=== PATIENT | female | born 1950 | race Caucasian/White ===

== ENCOUNTER 2017-07-25 11:41 | Inpatient (IN) | payer MEDICARE ==
[~2017-07-25] VITALS: Ht 152.4 cm; Wt 44.0 kg
[2017-07-25] VITALS (15 sets, daily range): BP systolic 127–179; BP diastolic 69–88; PULSE 76–121; RESP 18–22; TEMP 97.7–98.2; O2SAT 92–97
[2017-07-25] MEDS: RESP: ALBUTEROL 2.5 MG/IPRATROPIUM 0.5 MG NEB (SCH) INH (12:14)
[2017-07-25] MEDS ORDERED: SODIUM CHLORIDE 0.9% FLUSH 10 ML FLUSH IVF PRN (12:15)
[2017-07-25] MEDS ORDERED: methylPREDNISolone SOD SUCC 125 MG/2 ML VIAL IV PUSH ONE (12:15)
--- NOTE | 2017-07-25 12:15 | PD ---
HPI Chief Complaint: Respiratory Symptoms Time Seen by Provider: 12:01 Travel History International Travel<30 days: No Contact w/Intl Traveler<30days: No Traveled to known affect area: No History of Present Illness HPI This patient complains of shortness of breath. Duration 3 days. Severity is moderate to severe. She arrives hypoxic on room air. Saturation 89%. She denies lung disease but has smoked for 50+ years. She has a dry hacking cough for 3 days. Some congestion and runny nose. She has some central chest pressure. No pleuritic pain. No leg swelling. No alleviating factors. Symptoms likely exacerbated by her smoking. PFSH Past Medical History Medical History: Denies Significant Hx Influenza Vaccination: No ?: Not Past Surgical History Cholecystectomy: Yes Hysterectomy: Yes Social History Alcohol Use: Yes (OCCAS) Tobacco Use: Yes (1/2 PPD) Substance Use: No Allergies-Medications (Allergen,Severity, Reaction): Coded Allergies: No Known Allergies (Verified Allergy, Unknown, 07/25/17) Reported Meds & Prescriptions Reported Meds & Active Scripts Active No Active Prescriptions or Reported Medications Review of Systems General / Constitutional: No: Fever Eyes: No: Visual changes HENT: Positive: Rhinorrhea, Congestion, No: Headaches Cardiovascular: Positive: Chest Pain or Discomfort Respiratory: Positive: Cough, Shortness of Breath Gastrointestinal: No: Abdominal Pain Genitourinary: No: Dysuria Musculoskeletal: No: Pain Skin: No Rash Neurologic: No: Weakness Psychiatric: No: Depression Endocrine: No: Polydipsia Hematologic/Lymphatic: No: Easy Bruising Physical Exam Narrative GENERAL: Well-nourished, well-developed patient with shortness of breath . SKIN: Focused skin assessment reveals no rash and nodules. Skin is Warm and dry. HEAD: Atraumatic. Normocephalic. EYES: Pupils equal and round. No scleral icterus. No injection or drainage. ENT: No nasal bleeding or discharge. Mucous membranes pink and moist. NECK: Trachea midline. No JVD. CARDIOVASCULAR: Regular rate and rhythm. No murmur appreciated. RESPIRATORY: Some accessory muscle use. Very diminished breath sounds throughout. Seems to be little air movement. Breath sounds equal bilaterally. GASTROINTESTINAL: Abdomen soft, non-tender, nondistended. Hepatic and splenic margins not palpable. MUSCULOSKELETAL: No obvious deformities. No clubbing. No cyanosis. No edema. NEUROLOGICAL: Awake and alert. No obvious cranial nerve deficits. Motor grossly within normal limits. Normal speech. PSYCHIATRIC: Appropriate mood and affect; insight and judgment normal. Data Data Last Documented VS Vital Signs Date Time Temp Pulse Resp B/P (MAP) Pulse Ox O2 Delivery O2 Flow Rate FiO2 07/25/17 15:05 99 18 129/69 (89) 95 Nasal Cannula 2.00 07/25/17 11:59 97.7 Orders Orders Complete Blood Count With Diff (07/25/17 12:09) Basic Metabolic Panel (Bmp) (07/25/17 12:09) Influenzae A/B Antigen (07/25/17 12:09) Iv Access Insert/Monitor (07/25/17 12:09) Electrocardiogram (07/25/17 12:09) Ecg Monitoring (07/25/17 12:09) Oximetry (07/25/17 12:09) Oxygen Administration (07/25/17 12:09) Chest, Single Ap (07/25/17 12:09) Sodium Chloride 0.9% Flush (Ns Flush) (07/25/17 12:15) Methylprednisolone So Succ Inj (Solumedr (07/25/17 12:15) Albuterol-Ipratropium Neb (Duoneb Neb) (07/25/17 12:15) Ckmb (Isoenzyme) Profile (07/25/17 12:40) Troponin I (07/25/17 12:40) CKMB (07/25/17 12:40) CKMB% (07/25/17 12:40) Admit Order (Ed Use Only) (07/25/17 15:32) Labs Laboratory Tests Test 07/25/17 12:40 White Blood Count 9.2 TH/MM3 Red Blood Count 5.30 MIL/MM3 Hemoglobin 16.2 GM/DL Hematocrit 48.3 % Mean Corpuscular Volume 91.0 FL Mean Corpuscular Hemoglobin 30.6 PG Mean Corpuscular Hemoglobin Concent 33.6 % Red Cell Distribution Width 13.6 % Platelet Count 251 TH/MM3 Mean Platelet Volume 8.7 FL Neutrophils (%) (Auto) 74.3 % Lymphocytes (%) (Auto) 16.2 % Monocytes (%) (Auto) 5.6 % Eosinophils (%) (Auto) 3.0 % Basophils (%) (Auto) 0.9 % Neutrophils # (Auto) 6.8 TH/MM3 Lymphocytes # (Auto) 1.5 TH/MM3 Monocytes # (Auto) 0.5 TH/MM3 Eosinophils # (Auto) 0.3 TH/MM3 Basophils # (Auto) 0.1 TH/MM3 CBC Comment DIFF FINAL Differential Comment Blood Urea Nitrogen 8 MG/DL Creatinine 0.53 MG/DL Random Glucose 116 MG/DL Calcium Level 9.7 MG/DL Sodium Level 139 MEQ/L Potassium Level 3.9 MEQ/L Chloride Level 105 MEQ/L Carbon Dioxide Level 25.6 MEQ/L Anion Gap 8 MEQ/L Estimat Glomerular Filtration Rate 114 ML/MIN Total Creatine Kinase 130 U/L Creatine Kinase MB 6.5 NG/ML Troponin I 0.74 NG/ML [facility] Medical Decision Making Medical Screen Exam Complete: Yes Emergency Medical Condition: Yes Medical Record Reviewed: Yes Differential Diagnosis Hypoxic respiratory failure, COPD, pneumonia, ACS Narrative Course I have reviewed the patient's electronic medical record. This patient arrives short of breath and hypoxic. She is also having chest discomfort. I placed her on oxygen Extended cardiac monitoring reveals sinus tachycardia without ectopy. There is no ST elevation. There is inverted T waves in lateral leads I reviewed her EKG which shows sinus tachycardia without ST elevation Labs sent I gave her series of 3 nebulizer treatments and IV Solu-Medrol I find it likely she has some degree of COPD despite having no diagnosis General labs are normal. CK is normal. Troponin is 0.74 Patient is asymptomatic base at this point no longer critically ill. She is not having acute chest pain Hospitalist team is here now. They have recommended admission to the main hospital to [facility], essentially non-STEMI situation Critical Care Narrative Aggregate critical care time was 34 minutes. Time to perform other separately billable procedures was not included in the critical care time. My time did not include minutes spent treating any other patients simultaneously or on activities that did not directly contribute to the patient's treatment. The services I provided to this patient were to treat and/or prevent clinically significant deterioration that could result in: Respiratory collapse, cardiopulmonary arrest, cardiac arrhythmia I provided critical care services requiring my management, as noted below: Chart data review, documentation time, medication orders and management, vital sign assessments/reviewing monitor data, ordering and reviewing lab tests, ordering and interpreting/reviewing x-rays and diagnostic studies, care of the patient and discussion of the patient with the admitting physicians. Diagnosis Primary Impression: Acute respiratory failure with hypoxia Additional Impression: Non-STEMI (non-ST elevated myocardial infarction) Admitting Information Admitting Physician Requests: Admit Scripts No Active Prescriptions or Reported Meds Jamir Boyer MD Jul 25, 2017 12:15
--- NOTE | 2017-07-25 12:38 | RADRPT ---
EXAM DATE/TIME: 07/25/2017 12:13 [place] COMPARISON: No previous studies available for comparison. INDICATIONS : Short of breath. MEDICAL HISTORY : None. SURGICAL HISTORY : Cholecystectomy. Hysterectomy. ENCOUNTER: Initial ACUITY: 3 days PAIN SCORE: 0/10 LOCATION: Bilateral chest FINDINGS: A single view of the chest demonstrates the lungs to be symmetrically aerated without evidence of mas s, infiltrate or effusion. The cardiomediastinal contours are unremarkable. Atherosclerotic calcific ations are present in the aorta. There are electrocard exam leads and oxygen tubing. Osseous structur es are intact. CONCLUSION: No acute disease. Cornell Moreland MD on July 25, 2017 at 12:35 Board Certified Radiologist. This report was verified electronically.
[2017-07-25 12:57] LABS: AUTOMATED NEUTROPHIL # 6.8 TH/MM3 (1.8-7.7); BASOPHIL # 0.1 TH/MM3 (0-0.2); BASOPHIL % 0.9 % (0.0-2.0); EOSINOPHIL # 0.3 TH/MM3 (0-0.4); HEMATOCRIT 48.3 % (35.0-46.0); HEMOGLOBIN 16.2 GM/DL (11.6-15.3); LYMPH % 16.2 % (9.0-44.0); LYMPHOCYTE # 1.5 TH/MM3 (1.0-4.8); MEAN CORPUSCULAR HEMOGLOBIN 30.6 PG (27.0-34.0); MEAN CORPUSCULAR HGB CONC 33.6 % (32.0-36.0); MEAN PLATELET VOLUME 8.7 FL (7.0-11.0); MONO % 5.6 % (0.0-8.0); MONOCYTE # 0.5 TH/MM3 (0-0.9); NEUT % 74.3 % (16.0-70.0); PLATELET COUNT 251 TH/MM3 (150-450); RED CELL DISTRIBUTION WIDTH 13.6 % (11.6-17.2); WHITE BLOOD COUNT 9.2 TH/MM3 (4.0-11.0)
[2017-07-25 13:09] LABS: CHLORIDE 105 MEQ/L (98-107); SODIUM (NA) 139 MEQ/L (136-145)
[2017-07-25 13:11] LABS: CALCIUM 9.7 MG/DL (8.5-10.1)
[2017-07-25 13:12] LABS: BICARBONATE 25.6 MEQ/L (21.0-32.0); BLOOD UREA NITROGEN 8 MG/DL (7-18); GLUCOSE,RANDOM 116 MG/DL (74-106)
[2017-07-25 13:15] LABS: CREATININE 0.53 MG/DL (0.50-1.00); GLOMERULAR FILTRATION RATE 114 ML/MIN (>89)
[2017-07-25 14:41] LABS: TROPONIN I 0.74 NG/ML (0.02-0.05)
[2017-07-25] MEDS ORDERED: HEPARIN SODIUM - IV 10,000 UNITS/10 ML VIAL IV PUSH ONE (15:45)
[2017-07-25] MEDS ORDERED: ASPIRIN 325 MG TAB PO SCH (15:45)
[2017-07-25] MEDS ORDERED: SODIUM CHLORIDE 0.9% FLUSH 10 ML FLUSH IV FLUSH PRN (15:45)
[2017-07-25] MEDS ORDERED: RESP: ALBUTEROL 2.5 MG/IPRATROPIUM 0.5 MG NEB (PRN) NEB (15:45)
[2017-07-25] MEDS ORDERED: DOCUSATE SODIUM 100 MG CAP PO PRN (15:45)
[2017-07-25] MEDS ORDERED: ACETAMINOPHEN 325 MG TAB PO PRN (15:45)
[2017-07-25] MEDS ORDERED: HEPARIN-D5W 25,000 U/250 ML 250 ML IV PRN (15:45)
--- NOTE | 2017-07-25 16:15 | HHI.HP ---
[facility] Criss Og MD Admission Diagnosis acute hypoxic resp failure due to COPD,chest pain with trop I eleva Diagnoses: (1) Acute coronary syndrome Diagnosis: Principal (2) Non-STEMI (non-ST elevated myocardial infarction) Diagnosis: Principal (3) Hypoxia Diagnosis: Principal Chief Complaint: Chest pain, shortness of breath Travel History International Travel<30 Days: No Contact w/Intl Traveler <30 Da: No Traveled to Known Affected Are: No History of Present Illness 67-year-old female with known history of hypertension, chronic tobacco use who presented to the hospital because of a 3-4 day history of shortness of breath, dry cough, dyspnea on exertion, orthopnea. Patient was in her normal state of health until 4 days ago when she started developing upper respiratory symptoms with cough and shortness of breath. It progressively got worse until 2 days ago when she started developing orthopnea, dyspnea on exertion. Patient states that she could not lay flat. She had to use 2 pillows in order to sit herself up in order for her to breathe. Then yesterday morning she started developing chest discomfort in which she describes it as someone was sitting on her chest, states that the discomfort radiated up to into the left side of her neck and into her left trapezius where she felt as if she had a muscle cramp there all day. She has some nausea and vomited after she had significant coughing. She had worsening dyspnea on exertion, shortness of breath. She denied any lightheadedness or dizziness. She went to her primary medical doctor's office today for evaluation and they sent her directly to the emergency department. In the emergency department the patient presented and was found to have O2 saturation of 89% on presentation. Patient was initially started on oxygen with improvement of her O2 saturations. Patient does smoke at least a half pack of cigarettes a day since she was 10 years old. Patient has significant risk factors for underlying cardiac disease. 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 She does not indicate that she is ever had any stress test in the past. Patient had a workup done with her clinical presentation with the persistent chest tightness, dyspnea on exertion, orthopnea, EKG findings of anterior lateral T-wave abnormalities possible ischemia. Elevated troponin. Patient with acute coronary syndrome and non-ST elevated myocardial infarction. [facility] was contacted who recommended transfer to the main hospital, started on heparin. Patient was started on cardiac protection with aspirin, beta-vee, statin, Nitropaste. Review of Systems Respiratory: COMPLAINS OF: Cough, Shortness of breath Cardiovascular: COMPLAINS OF: Chest pain, Dyspnea on Exertion, Orthopnea Gastrointestinal: COMPLAINS OF: Nausea, Vomiting Except as stated in HPI: all other systems reviewed are Neg Past Family Social History Past Medical History History of hypertension Chronic tobacco use Past Surgical History Cholecystectomy Hysterectomy Tonsillectomy Right leg bone graft Cardiac catheterization with ablation Reported Medications Reported Meds & Active Scripts Active No Active Prescriptions or Reported Medications Allergies: Coded Allergies: No Known Allergies (Verified Allergy, Unknown, 07/25/17) Family History Family history is reviewed and mother at age 96 from old age, she does not know her father's family history Social History Patient continues to smoke at least 10 cigarettes daily since she was 10 years old. She does drink at least 2 glasses of wine and one glass of ed daily. Denies any illicit drug Physical Exam Vital Signs Vital Signs Date Time Temp Pulse Resp B/P (MAP) Pulse Ox O2 Delivery O2 Flow Rate FiO2 07/25/17 15:05 99 18 129/69 (89) 95 Nasal Cannula 2.00 07/25/17 14:00 93 Nasal Cannula 2.00 07/25/17 14:00 111 20 141/87 (105) 93 Nasal Cannula 2.00 07/25/17 13:03 94 Nasal Cannula 2.00 07/25/17 13:03 94 Nasal Cannula 2.00 07/25/17 12:58 121 18 153/84 (107) 94 Nasal Cannula 2.00 07/25/17 12:15 95 Nasal Cannula 2.00 07/25/17 11:59 97.7 110 22 150/88 (108) 93 Nasal Cannula 2.00 07/25/17 11:50 93 Nasal Cannula 2.00 07/25/17 11:42 97.8 116 22 179/83 (115) 92 Physical Exam GENERAL: Well-developed, well-nourished, in no acute distress. alert and orientated HEENT: Head is normocephalic without any lesions or masses noted. Facial features are symmetric. Eyes: Pupils equal round reactive to light. Extraocular muscles are intact. Conjunctivae were clear. Oropharyngeal: Pharynx without any erythema edema. Tongue is midline without deviation. Buccal mucosa is moist without any masses or lesions NECK: Supple without any masses. Trachea midline no deviation. No JVD, no bruits are appreciated CARDIAC: Regular rhythm, regular rate. S1/S2 are heard. No murmurs gallops or rubs. LUNGS: Expiratory wheeze noted, no rhonchi or rales. No use of accessory muscles on inspiration or expiration. Patient does have rather forceful coughing fits ABDOMEN: Soft, nontender. Nondistended. Bowel sounds heard in all 4 quadrants. No organomegaly or masses. Negative rebound, negative guarding EXTREMITIES: No edema, pulses are equal bilaterally. No cyanosis or clubbing NEUROLOGY: Mood and affect appear appropriate. Cranial nerves II through XII grossly intact. Muscle strength 5/5 in upper and lower extremities bilaterally. Deep tendon reflexes are 2+ in upper and lower extremities bilaterally. Laboratory Laboratory Tests Test 07/25/17 12:40 White Blood Count 9.2 Red Blood Count 5.30 Hemoglobin 16.2 Hematocrit 48.3 Mean Corpuscular Volume 91.0 Mean Corpuscular Hemoglobin 30.6 Mean Corpuscular Hemoglobin Concent 33.6 Red Cell Distribution Width 13.6 Platelet Count 251 Mean Platelet Volume 8.7 Neutrophils (%) (Auto) 74.3 Lymphocytes (%) (Auto) 16.2 Monocytes (%) (Auto) 5.6 Eosinophils (%) (Auto) 3.0 Basophils (%) (Auto) 0.9 Neutrophils # (Auto) 6.8 Lymphocytes # (Auto) 1.5 Monocytes # (Auto) 0.5 Eosinophils # (Auto) 0.3 Basophils # (Auto) 0.1 CBC Comment DIFF FINAL Differential Comment Blood Urea Nitrogen 8 Creatinine 0.53 Random Glucose 116 Calcium Level 9.7 Sodium Level 139 Potassium Level 3.9 Chloride Level 105 Carbon Dioxide Level 25.6 Anion Gap 8 Estimat Glomerular Filtration Rate 114 Total Creatine Kinase 130 Creatine Kinase MB 6.5 Troponin I 0.74 Date/Time Source Procedure Growth Status 07/25/17 12:40 Nasal Washing Influenza Types A,B Antigen (PARISH) - Final NEGATIVE FOR FLU A AND B ANTIGEN.... Complete Result Diagram: 4/30/18 1240 07/25/17 1240 Imaging Last Impressions Chest X-Ray 07/25/17 1209 Signed Impressions: Service Date/Time: Tuesday, July 25, 2017 12:13 - CONCLUSION: No acute disease. MD Edgar Moncada VTE Risk Assessment Edgar VTE Risk Assessment: Mod/High Risk (score >= 2) Caprini Risk Assessment Model Point Value = 1 Point Value = 2 Point Value = 3 Point Value = 5 Age 41-60 Minor surgery BMI > 25 kg/m2 Swollen legs Varicose veins or History of unexplained or recurrent spontaneous Oral contraceptives or hormone replacement Sepsis (< 1 month) Serious lung disease, including pneumonia (< 1 month) Abnormal pulmonary function Acute myocardial infarction Congestive heart failure (< 1 month) History of inflammatory bowel disease Medical patient at bed rest Age 61-74 Arthroscopic surgery Major open surgery (> 45 min) Laparoscopic surgery (> 45 min) Malignancy Confined to bed (> 72 hours) Immobilizing plaster cast Central venous access Age >= 75 History of VTE Family history of VTE Factor V Leiden Prothrombin [id number] Lupus anticoagulant Anticardiolipin antibodies Elevated serum homocysteine Heparin-induced thrombocytopenia Other congenital or acquired thrombophilia Stroke (< 1 month) Elective arthroplasty Hip, pelvis, or leg fracture Acute spinal cord injury (< 1 month) Prophylaxis Regimen Total Risk Factor Score Risk Level Prophylaxis Regimen 0-1 Low Early ambulation 2 Moderate Order ONE of the following: *Sequential Compression Device (SCD) *Heparin 5000 units SQ BID 3-4 Higher Order ONE of the following medications: *Heparin 5000 units SQ TID *Enoxaparin/Lovenox 40 mg SQ daily (WT < 150 kg, CrCl > 30 mL/min) *Enoxaparin/Lovenox 30 mg SQ daily (WT < 150 kg, CrCl > 10-29 mL/min) *Enoxaparin/Lovenox 30 mg SQ BID (WT < 150 kg, CrCl > 30 mL/min) AND/OR *Sequential Compression Device (SCD) 5 or more Highest Order ONE of the following medications: *Heparin 5000 units SQ TID (Preferred with Epidurals) *Enoxaparin/Lovenox 40 mg SQ daily (WT < 150 kg, CrCl > 30 mL/min) *Enoxaparin/Lovenox 30 mg SQ daily (WT < 150 kg, CrCl > 10-29 mL/min) *Enoxaparin/Lovenox 30 mg SQ BID (WT < 150 kg, CrCl > 30 mL/min) AND *Sequential Compression Device (SCD) Assessment and Plan Assessment and Plan Acute coronary syndrome, non-ST elevated myocardial infarction -Patient with increased risk factors include age, history of hypertension, tobacco use -Patient with positive troponin 0.74. We will continue to trend cardiac enzymes -EKG does show sinus tachycardia with ST changes in the anterior lateral leads. We will continue to perform serial EKGs -Discussed with cardiology who indicated patient was required admission to [facility], patient should be started on heparin IV, -Patient be started on aspirin, beta-vee, statin, Nitropaste -Obtain lipid panel Hypoxia, shortness of breath, dyspnea on exertion, cough -Could be a component of acute coronary syndrome, chronic obstructive pulmonary disease, congestive heart failure -Chest x-ray did not indicate any acute abnormality -Check stat BMP -Duo nebs every 6 hours while awake and every 2 hours as needed -Influenza testing was negative, obtain sputum culture DVT prevention -Patient will be on heparin IV CODE STATUS -No intubation Physician Certification 2 Midnight Certification Type: Admission for Inpatient Services Order for Inpatient Services The services are ordered in accordance with Medicare regulations or non- Medicare payer requirements, as applicable. In the case of services not specified as inpatient-only, they are appropriately provided as inpatient services in accordance with the 2-midnight benchmark. Estimated LOS (days): 3 days is the estimated time the patient will need to remain in the hospital, assuming treatment plan goals are met and no additional complications. Post-Hospital Plan: Not yet determined Jamir Corcoran Jul 25, 2017 16:15
[2017-07-25 16:40] LABS: ALBUMIN 3.7 GM/DL (3.4-5.0)
[2017-07-25 16:42] LABS: DIRECT BILIRUBIN ADULT 0.2 MG/DL (0.0-0.2)
[2017-07-25 16:44] LABS: TOTAL BILIRUBIN ADULT 1.2 MG/DL (0.2-1.0); TOTAL PROTEIN 7.7 GM/DL (6.4-8.2)
[2017-07-25 17:09] LABS: BLOOD, URINE MOD (NEG); GLUCOSE,URINE NEG (NEG); KETONE, URINE 15 mg/dL (NEG); NITRITE,URINE NEG (NEG); PH, URINE 5.5 (5.0-8.5); URINE COLOR YELLOW (YELLW/STRAW); URINE LEUKOCYTE ESTERASE NEG (NEG)
[2017-07-25 17:12] LABS: BILIRUBIN, URINE NEG (NEG)
[2017-07-25 17:44] LABS: BACTERIA, URINE MANY /hpf; RBC, URINE 0-3 /hpf (0-3); SQUAMOUS EPITHELIAL CELL URINE > 8 /hpf (0-5)
[2017-07-25] MEDS: NITROGLYCERIN 2% OINT 1 GM PACKET TOP SCH ×2 (17:58→23:29)
[2017-07-25 18:55] LABS: TROPONIN I 0.46 NG/ML (0.02-0.05)
[2017-07-25] MEDS: MORPHINE SULFATE 4 MG/ML INJ IV PUSH PRN (19:35)
[2017-07-25] MEDS: METOPROLOL TARTRATE 25 MG TAB PO SCH (19:35)
[2017-07-25] MEDS: SODIUM CHLORIDE 0.9% FLUSH 10 ML FLUSH IV FLUSH SCH (19:36)
--- NOTE | 2017-07-25 20:17 | MB ---
cc: Clifford Irwin MD DATE: 07/25/2017 HISTORY OF PRESENT ILLNESS: Ms. Torres is a 67-year-old white female with history of hypertension and smoking. She presented with a 3-4 day history of dyspnea, dry cough and orthopnea. She also has had chest discomfort which started yesterday morning. The pain is little slower substernal, radiates to the left side of the neck. It feels like a muscle cramp. The patient was mildly hypoxemic. The patient has previous history of cardiac ablation, but has not had any history of coronary artery disease. Her troponin is elevated and is consistent with a non-ST elevation myocardial infarction. PAST MEDICAL HISTORY: Positive for hypertension. PAST SURGICAL HISTORY: History of cholecystectomy, hysterectomy, tonsillectomy, right leg bone graft, previous history of arrhythmia ablation. MEDICATIONS: The patient is not taking any medications at home. She was started on IV heparin, metoprolol, atorvastatin, nitroglycerin paste and aspirin. ALLERGIES: NONE. SOCIAL HISTORY: The patient smokes 1/2 pack a day since she was 10 years old. She drinks at 2 glasses of wine and 1 glass of ed every day. FAMILY HISTORY: Negative for heart disease. REVIEW OF SYSTEMS: Otherwise negative. PHYSICAL EXAMINATION: VITAL SIGNS: Blood pressure 157/82, pulse 92. HEENT: Negative. NECK: 2+ carotid upstrokes, no bruits. LUNGS: Clear. HEART: Regular with no murmur or gallop. ABDOMEN: Soft. No bruits. CHEST: Lower substernal chest discomfort is reproducible with chest palpation. EXTREMITIES: Without edema. 2+ distal pulses. NEUROLOGIC: Grossly nonfocal. LABORATORY DATA: EKG was reviewed and showed sinus tachycardia, nonspecific ST changes and anterior T wave inversions. Hemoglobin 16.2. Potassium 3.9, creatinine 0.5, CK 130 and 128. Troponin 0.74 and 0.46. AST and ALT normal. TSH 0.18. DIAGNOSES: 1. Non-ST elevation myocardial infarction. 2. Hypertension. 3. Smoking. ASSESSMENT AND PLAN: Ms. Torres has been ruled in for myocardial infarction by enzymes. We will continue IV heparin, beta vee, nitroglycerin, statin and aspirin. She will be scheduled for cardiac catheterization and coronary intervention if necessary tomorrow. She understands the risks and benefits, and wishes to proceed. MD SANDRA Solis , 07:52 PM , 08:16 PM [facility]
--- NOTE | 2017-07-25 20:22 | EKG ---
Date Performed: 07/25/2017 Time Performed: 12:00:37 PTAGE: 67 years EKG: SINUS TACHYCARDIA LEFT ATRIAL ENLARGEMENT ST DEVIATION AND MODERATE T-WAVE ABNORMALITY, CON PLATER HOT DIP ANTEROLATERAL ISCHEMIA ABNORMAL ECG NO PREVIOUS TRACING DOCTOR: Miguel Angel Oneil Interpretating Date/Time 07/25/2017 20:20:24
[2017-07-25 20:28] LABS: CHOLESTEROL/ HDL RATIO 2.67 RATIO; HDL CHOLESTEROL 99.4 MG/DL (40.0-60.0)
[2017-07-25] MEDS: ATORVASTATIN 10 MG TAB PO SCH (21:12)
[2017-07-25] MEDS: RESP: ALBUTEROL 2.5 MG/IPRATROPIUM 0.5 MG NEB (SCH) NEB (21:25)
[2017-07-25] MEDS ORDERED: HEPARIN SODIUM - IV 10,000 UNITS/10 ML VIAL IV PUSH PRN ×2 (21:45)
--- NOTE | 2017-07-25 21:47 | EKG ---
Date Performed: 07/25/2017 Time Performed: 18:30:16 PTAGE: 67 years EKG: SINUS TACHYCARDIA LEFT ATRIAL ENLARGEMENT Nonspecific ST and T wave abnormalities ABNORMAL ECG No significant change from prior electrocardiogram. PREVIOUS TRACING : 07/25/2017 12.00 DOCTOR: Raman Conroy Interpretating Date/Time 07/25/2017 21:45:41
[2017-07-25] MEDS: ALPRAZolam 0.25 MG TAB PO PRN (23:29)
[2017-07-26] VITALS (27 sets, daily range): BP systolic 93–144; BP diastolic 50–78; PULSE 65–103; RESP 16–20; TEMP 97.8–98.8; O2SAT 92–99
[2017-07-26 00:24] LABS: PROTHROMBIN TIME - PATIENT 10.2 SEC (9.8-11.6)
[2017-07-26] MEDS: NITROGLYCERIN 2% OINT 1 GM PACKET TOP SCH ×4 (05:22→23:42)
[2017-07-26] MEDS: RESP: ALBUTEROL 2.5 MG/IPRATROPIUM 0.5 MG NEB (SCH) NEB ×3 (07:15→20:55)
--- NOTE | 2017-07-26 07:26 | EKG ---
Date Performed: 07/26/2017 Time Performed: 06:05:16 PTAGE: 67 years EKG: Sinus rhythm . QRS changes V3/V4 may be due to LVH but cannot rule out anterior infarct LVH with secondary repolar ization abnormality Nonspecific ST and T wave abnormalities Abnormal ECG No significant change from p rior electrocardiogram. PREVIOUS TRACING : 07/25/2017 23.46 DOCTOR: Raman Conroy Interpretating Date/Time 07/26/2017 07:24:32
--- NOTE | 2017-07-26 07:27 | EKG ---
Date Performed: 07/25/2017 Time Performed: 23:46:04 PTAGE: 67 years EKG: Sinus rhythm . QRS changes V3/V4 may be due to LVH but cannot rule out anterior infarct LVH with secondary repolar ization abnormality Nonspecific ST and T wave abnormalities Abnormal ECG Compared to prior electrocar diogram, Nonspecific T wave changes are more marked PREVIOUS TRACING : 07/25/2017 18.30 DOCTOR: Raman Conroy Interpretating Date/Time 07/26/2017 07:26:47
[2017-07-26 08:08] LABS: BICARBONATE 27.4 MEQ/L (21.0-32.0); CALCIUM 9.2 MG/DL (8.5-10.1)
[2017-07-26 08:09] LABS: CREATININE 0.71 MG/DL (0.50-1.00)
[2017-07-26] MEDS: METOPROLOL TARTRATE 25 MG TAB PO SCH ×2 (08:38→20:40)
[2017-07-26] MEDS: ONDANSETRON HCL 4 MG/2 ML VIAL IV PUSH PRN (08:38)
[2017-07-26] MEDS: SODIUM CHLORIDE 0.9% FLUSH 10 ML FLUSH IV FLUSH SCH ×2 (08:38→19:38)
[2017-07-26] MEDS: ALPRAZolam 0.25 MG TAB PO PRN (08:40)
[2017-07-26] MEDS ORDERED: FLUMAZENIL 0.5 MG/5 ML VIAL IV PUSH PRN (09:00)
[2017-07-26] MEDS ORDERED: LORazepam 1 MG TAB PO PRN (09:00)
[2017-07-26] MEDS ORDERED: RESP: ALBUTEROL 2.5 MG/3 ML NEB (PRN) NEB (09:00)
[2017-07-26] MEDS ORDERED: LORazepam 2 MG/ML VIAL IV PUSH PRN ×4 (09:00)
[2017-07-26] MEDS ORDERED: BENZONATATE 100 MG CAP PO PRN (09:00)
[2017-07-26] MEDS ORDERED: LORazepam 2 MG TAB PO PRN (09:00)
--- NOTE | 2017-07-26 10:05 | HHI.PR ---
Subjective Remarks Follow up CAD, COPD. Patient reporting cough. Nursing requesting CIWA protocol. Patient denies chest pain. Objective Vitals Vital Signs Date Time Temp Pulse Resp B/P (MAP) Pulse Ox O2 Delivery O2 Flow Rate FiO2 07/26/17 09:00 92 07/26/17 08:00 101 07/26/17 07:15 99 Nasal Cannula 3.00 07/26/17 07:15 98.7 103 19 97/57 (70) 92 07/26/17 07:15 75 07/26/17 06:00 74 07/26/17 05:00 78 07/26/17 04:00 76 07/26/17 04:00 97.8 76 16 109/57 (74) 97 07/26/17 03:00 70 07/26/17 02:00 74 07/26/17 01:00 78 07/26/17 00:00 87 07/26/17 00:00 98.0 96 18 144/62 (89) 96 07/25/17 23:00 94 07/25/17 22:00 88 07/25/17 21:25 Nasal Cannula 3.00 07/25/17 21:00 76 07/25/17 20:00 88 07/25/17 19:30 98.2 88 18 152/88 (109) 97 07/25/17 19:07 07/25/17 18:09 100 18 157/82 (107) 94 Nasal Cannula 2.00 07/25/17 18:09 95 Nasal Cannula 2.00 07/25/17 17:00 108 18 127/72 (90) 95 Nasal Cannula 2.00 07/25/17 16:00 95 Nasal Cannula 2.00 07/25/17 16:00 120 20 133/74 (93) 95 Nasal Cannula 2.00 07/25/17 15:05 99 18 129/69 (89) 95 Nasal Cannula 2.00 07/25/17 14:00 93 Nasal Cannula 2.00 07/25/17 14:00 111 20 141/87 (105) 93 Nasal Cannula 2.00 07/25/17 13:03 94 Nasal Cannula 2.00 07/25/17 13:03 94 Nasal Cannula 2.00 07/25/17 12:58 121 18 153/84 (107) 94 Nasal Cannula 2.00 07/25/17 12:15 95 Nasal Cannula 2.00 07/25/17 11:59 97.7 110 22 150/88 (108) 93 Nasal Cannula 2.00 07/25/17 11:50 93 Nasal Cannula 2.00 07/25/17 11:42 97.8 116 22 179/83 (115) 92 I/O 07/25/17 07/25/17 07/25/17 07/26/17 07/26/17 07/26/17 07:00 15:00 23:00 07:00 15:00 23:00 Intake Total 300 ml Balance 300 ml Intake Oral 300 ml # Voids 1 # Bowel Movements 0 Result Diagram: 07/25/17 1240 07/26/17 0655 Imaging Last Impressions Chest X-Ray 07/25/17 1209 Signed Impressions: Service Date/Time: Tuesday, July 25, 2017 12:13 - CONCLUSION: No acute disease. Cornell Moreland MD Objective Remarks General: No acute distress. Mildly tremulous. Heart: Regular rate and rhythm. No murmur. Lungs: Mild scattered wheeze. Breathing is nonlabored. Abdomen: Soft, nontender, nondistended. Extremities: No lower extremity edema. Psych: Alert and oriented. Neuro: Normal speech. No focal deficits noted. Procedures None Urinary Catheter: No Vascular Central Line Catheter: No A/P Problem List: (1) Acute coronary syndrome ICD Code: I24.9 - Acute ischemic heart disease, unspecified (2) Non-STEMI (non-ST elevated myocardial infarction) ICD Code: I21.4 - Non-ST elevation (NSTEMI) myocardial infarction Status: Acute (3) Hypoxia ICD Code: R09.02 - Hypoxemia Assessment and Plan 1. Acute coronary syndrome, non-ST elevation WI: Appreciate cardiology recommendations. Troponin elevated. Planning for cardiac catheterization later today. Continue heparin drip. Continue aspirin, beta-vee, statin, Nitropaste. 2. Possible alcohol withdrawal: Add CIWA protocol. 3. COPD: Continue duo nebs, supplemental oxygen. Add Tessalon Perles for cough. 4. DVT prophylaxis: Heparin drip. Jamir Crespo MD July 26, 2017 10:05
[2017-07-26] MEDS ORDERED: HEPARIN-NS/PF FLUSH BAG 2,000 ML IV FLUSH ONE (16:08)
[2017-07-26] MEDS ORDERED: MIDAZOLAM HCL 5 MG/5 ML VIAL ONE (16:40)
[2017-07-26] MEDS ORDERED: HEPARIN SODIUM - IV 10,000 UNITS/10 ML VIAL ONE (16:53)
--- NOTE | 2017-07-26 17:38 | CATHPROC ---
[facility] HIS Report Study Information Study Number Admission Scheduled Start Study Start [id number] Jul 25 2017 3:34PM 07/26/2017 Jul 26 2017 4:42PM [facility] Service Cardiac Catheterization Admit Source Facility Department Other [facility] - Furnace Caretaker Physician and Clinical Staff Initial Clifford Stephenson Jewelry Enameler Sera Hernandez,RN Jewelry Enameler Best Choudhury,OLLIE Other cathlab, cathlab Recorder Rory Bolden RCIS(BS) Scrub Indu Garcia RT(R) (BS) Procedures Performed Procedure Location (Site) Vessel Name Angiogram LV LV Ventricle Coronary Angiograms LCA Left Coronary Coronary Angiograms RCA Right Coronary L Heart Cath Equipment Time Shank Rander Description Size Mfg Part Number Used/Scraped TRANSDUCER, TRBiOxyDynAVE [id number] 16:43 Capital Access Network * Used W/STOCKCOCK *[id number] 17:25 SendHub VASCADE, FR5 CLOSURE SYSTEM FR 5 Used *[id number] 17:25 SendHub VASCADE, FR5 CLOSURE SYSTEM FR 5 Used *[id number] *[id number] 16:43 boolino INDUSTRIES PACK, CCL CUSTOM * Used *[id number] 16:43 boolino PACER PEN, SKIN DUAL W/ RULER * Used *[id number] 17:00 MEDTRONIC AR MOD DXTERITY CATHETER FR 5 [id number] Used [id number] 17:00 MEDTRONIC JL 4.0 DXTERITY CATHETER FR 5 Used *[id number] PIG ANG 145 DXTERITY [id number] 17:00 MEDTRONIC FR 5 Used CATHETER *[id number] 16:43 Alekto MEDICAL WIRE, 3MMJ .035 180CM 180CM Used *[id number] PROBE COVER, STERILE [id number] 16:43 Triangulate * Used ULTRASOUND W/ GEL *[id number] 16:43 NAMIC MANIFOLD, 4 PORT * Used *[id number] 16:43 NAMIC TUBING, HIGH PRESSURE 48" 48" Used *[id number] 16:43 NYCOMED OMNIPAQUE, 350 MG, 150ML 150ML [id number] Used 17:08 NYCOMED OMNIPAQUE, 350 MG, 50ML 50ML [id number] Used [id number] 16:43 [facility] BLANKET,WARM AIR CCL * Used *[id number] 16:43 TERUMO MEDICAL SHEATH, FR5 TERUMO (10CM) FR 5 Used *[id number] Equipment Model, Serial, Lot Number and Expiration Data Description Model Number Serial Number Lot Number Expiration Date AR MOD DXTERITY CATHETER [id number] 05-09-2020 JL 4.0 DXTERITY CATHETER [id number] 12-16-2019 PIG ANG 145 DXTERITY CATHETER [id number] 04-27-2019 History: Current Medications Medication Dosage/Unit Route Frequency Last Date/Time Taken ASA Beta Juanito Statins (any) History: Allergies Allergy Reaction No Known Allergies History: Risk Factors Family History of Hypertension Dyslipidemia Previous [place] Previous Heart Failure Premature CAD Yes No No No No Prior Valve Prior PCI Prior CABG Surgery No No No Cerebrovascular Peripheral Artery Chronic Lung On Dialysis Diabetes Disease Disease Disease No No No Yes No History: Symptoms/Diagnosis Selection Items Chest pain History: Stress Tests Stress or Imaging Studies Performed No History: Other Disease Selection Items HTN History: Other Current Smoker Method Packs a Day No Cigarettes 130 Labs Hgb (g/dl) Hct (%) WBC (l/cumm) Platelets (thousands) 11.60-17.00 35.00-51.00 4.00-11.00 150.00-450.00 16.2 48.3 9.2 251 Glucose (mg/dl) BUN (mg/dl) Creatinine (mg/dl) BUN:Creatinine (1:x) 74.00-106.00 7.00-18.00 0.50-1.30 10.00-20.00 101 22 0.7 31.4 Na (meq/l) K (meq/l) 136.00-145.00 3.50-5.10 141 4 INR (PTT:PT) 0.90-1.10 1 Troponin I (ng/ml) CPK (u/l) CPK-MB (ng/ML) 0.02-0.05 26.00-308.00 0.50-3.60 0.3 135 Not Drawn Medication Medication Total Dose (Bolus/Oral) Medication Total Dosage/Unit 1% XYLOCAINE 20 mL FENTANYL 25 mcg NTG (IC) 300 mcg VERSED 2 mg Medications (Bolus/Oral) Medication Time Given Dosage/Unit Administered By Reason VERSED 07/26/2017 4:42:20 PM 1 mg Kei, Best 1 mg VERSED given in lab by Best Choudhury RN in Left Hand via Peripheral IV. Ordered by Rosalina Irwin FENTANYL 07/26/2017 4:43:00 PM 25 mcg Kei, Best 25 mcg FENTANYL given in lab by Best Choudhury RN in Left Hand via Peripheral IV. Ordered by Clifford Irwin. VERSED 07/26/2017 4:49:00 PM 1 mg Kei, Best 1 mg VERSED given in lab by Best Choudhury RN in Left Hand via Peripheral IV. Ordered by Rosalina Irwin 1% XYLOCAINE 07/26/2017 5:02:44 PM 20 mL Clifford Irwin 20 mL 1% XYLOCAINE given in lab by Clifford Irwin in Right Groin via Subcutaneous. NTG (IC) 07/26/2017 5:18:16 PM 200 mcg Indu Garcia 200 mcg NTG (IC) given in lab by Indu Garcia RT(R) (BS) via Intra-coronary. NTG (IC) 07/26/2017 5:19:39 PM 100 mcg Indu Garcia 100 mcg NTG (IC) given in lab by Indu Garcia RT(R) (BS) via Intra-coronary. Medication (Drip) Medication Time Given Dosage/Unit Concentration/Unit Diluent (ml) Solutio n IV Solutions 07/26/2017 4:42:13 PM 0 mL (IV) 500 NaCl .9 Patient arrived on IV Solutions given by cathlab, cathlab in Left Hand via Peripheral IV. Pump/Drip F low = 20 ml/hr using NaCl .9. Final Case Assessment Cardiovascular HR Rhythm NIBP Chest Pain 82 nsr 130/79 0 Edema Present Skin color Skin None Normal Warm Dry Circulatory - Right Pulses Dorsalis Pedis Femoral 2 2 Scale (0,1,2,3,4,d) Circulatory - Left Pulses Dorsalis Pedis Femoral 2 2 Scale (0,1,2,3,4,d) Neurological State Oriented to time-place- Alert Moves all extremities person Respiration - General Respiration Rate SpO2 (%) (B/min) 15 97 Final Case Assessment Cardiovascular HR Rhythm NIBP Chest Pain 79 nsr 101/60 0 Edema Present Skin color Skin None Normal Warm Dry Circulatory - Right Pulses Dorsalis Pedis Femoral 2 2 Scale (0,1,2,3,4,d) Circulatory - Left Pulses Dorsalis Pedis Femoral 2 2 Scale (0,1,2,3,4,d) Neurological State Oriented to time-place- Alert Moves all extremities person Respiration - General Respiration Rate SpO2 (%) (B/min) 15 97 Chronological Log Time Study Chronological Log 16:35:02 Patient arrived via Bed. 16:35:03 Patient Name, D.O.B, / Armband Verified By R.N. 16:35:04 Consent signed by the physician and the patient and verified by the Furnace Caretaker staff. 16:42:06 Pre-op and post- op instructions given; patient acknowledges understanding of instructions. 16:42:06 Verbal Stimulation=2 Physical Stimulation=2 Airway=2 Respiration=2 TOTAL=8. (0=absent, 1=li mited, 2=present) 16:42:07 Presedation assessment performed by Furnace Caretaker RN. 16:42:07 Immediate Presedation assesment performed by physician. 16:42:08 Patient has been NPO for More than 6Hrs. 16:42:08 Skin Breakdown-none per patient 16:42:09 Patient Warmer Placed on the Table. 16:42:09 Elijah Prominences Protected 16:42:12 A # 20 IV was noted in the Hand (left). Grade = 0 Patient arrived on IV Solutions given by jameslabcurly in Left Hand via Peripheral IV. Pump/ Drip Flow = 20 ml/hr 16:42:13 using NaCl .9. 16:42:14 History and physical on the chart or being dictated. 16:42:20 1 mg VERSED given in lab by Best Choudhury RN in Left Hand via Peripheral IV. Ordered by Clifford Rueda. 16:43:00 25 mcg FENTANYL given in lab by Best Choudhury RN in Left Hand via Peripheral IV. Ordered by Clifford Irwin. Vitals capture started with the following parameters, Patient=Adult, Interval=5 min, Initial Pr zwclde=620 mmHg, 16:45:42 Deflation Rate=5 mmHg, Cuff placed on Left Arm 16:46:18 HR=78 bpm, ZKYS=914/79 mmhg, SpO2=97.0 %, Resp=15 B/min, Pain=0, Kierra=10, Ramirez=2 16:46:25 Bilateral groins prepped with 2% chlorhexidine, and draped after a 3 minute waiting time. Assessment: Final Case, HR=82 BPM, Rhythm=nsr, FYBE=603/79 mmhg, Chest Pain=0, Edema=None, [place] r=Normal, Skin = Warm, Dry Right Pulses: Ken Ped=2, Femoral=2 16:48:07 Left Pulses: Ken Ped=2, Femoral=2 Neurological: State=Alert, Ox3, REDDY Respiration: Resp=15 B/min, SpO2=97 % 16:48:52 MD paged 16:49:00 1 mg VERSED given in lab by Best Choudhury RN in Left Hand via Peripheral IV. Ordered by Clifford Rueda. 16:51:21 HR=84 bpm, NIBP=97/57 mmhg, SpO2=94.0 %, Resp=43 B/min 16:54:06 Pressure channel 1 zeroed. 16:54:12 Reference ECG taken 16:56:14 HR=77 bpm, NIBP=90/56 mmhg, SpO2=94.0 %, Resp=16 B/min, Pain=0, Kierra=10, Ramirez=2 16:57:25 MD arrived. 16:58:37 Md called away for another pt problem. 17:01:13 HR=78 bpm, NIBP=99/53 mmhg, SpO2=98.0 %, Resp=16 B/min, Pain=0, Kierra=10, Ramirez=2 Time Out. Correct patient, correct procedure, correct physician, power injector not loaded with contrast with surgical 17:02:13 team present. Time Out Concurred by MD and individual staff in procedure. 17:02:39 Case Start 17:02:40 Verbal Stimulation=2 Physical Stimulation=2 Airway=2 Respiration=2 TOTAL=8. (0=absent, 1=li mited, 2=present) 17:02:44 20 mL 1% XYLOCAINE given in lab by Clifford Irwin in Right Groin via Subcutaneous. 17:06:05 Access site was Right Femoral Artery using ultrasound guidance. 17:06:10 A SHEATH, FR5 TERUMO (10CM) FR 5 was advanced into the Fem Art (right) using the Percutaneo us technique. 17:06:14 HR=76 bpm, UGRP=302/63 mmhg, SpO2=99.0 %, Resp=16 B/min, Pain=0, Kierra=10, Ramirez=2 A PIG ANG 145 DXTERITY CATHETER FR 5 was advanced over a wire. OMNIPAQUE, 350 MG, 150ML 150ML w as used 17:06:45 for injections. Recorded Pressure: LV, HR=74, Condition=Condition 1 17:08:08 (Left Ventricle) LV 110/11/18 17:09:50 The LV was injected at 10 cc/sec for a total of 30. OMNIPAQUE, 350 MG, 50ML 50ML used. Recorded Pressure: LV, Ao, HR=82, Condition=Condition 1 17:10:37 (Left Ventricle) LV 102/13/14, (Aorta) Ao 107/52/78 17:10:57 Catheter was removed A JL 4.0 DXTERITY CATHETER FR 5 was advanced over a wire. OMNIPAQUE, 350 MG, 150ML 150ML was us ed for 17:10:58 injections. 17:11:17 HR=77 bpm, LBSQ=524/68 mmhg, SpO2=99.0 %, Resp=16 B/min, Pain=0, Kierra=10, Ramirez=2 Recorded Pressure: Ao, HR=76, Condition=Condition 1 17:11:49 (Aorta) Ao 116/60/84 17:12:06 The LCA was injected and visualized at various angles. OMNIPAQUE, 350 MG, 150ML 150ML used . 17:14:04 Catheter was removed A AR MOD DXTERITY CATHETER FR 5 was advanced over a wire. OMNIPAQUE, 350 MG, 150ML 150ML was us ed for 17:14:05 injections. 17:15:38 The RCA was injected and visualized at various angles. OMNIPAQUE, 350 MG, 50ML 50ML used. 17:16:07 Catheter was removed 17:16:16 HR=79 bpm, DGYJ=150/68 mmhg, SpO2=99.0 %, Resp=14 B/min, Pain=0, Kierra=10, Ramirez=2 A 3DRC INFINITI CATHETER FR 5 was advanced over a wire. OMNIPAQUE, 350 MG, 150ML 150ML was used for 17:16:51 injections. 17:18:16 200 mcg NTG (IC) given in lab by Indu Garcia RT(R) (BS) via Intra-coronary. 17:18:27 The RCA was injected and visualized at various angles. OMNIPAQUE, 350 MG, 150ML 150ML used . Recorded Pressure: Ao, HR=78, Condition=Condition 1 17:18:36 (Aorta) Ao 124/63/87 17:19:39 100 mcg NTG (IC) given in lab by Indu Garcia RT(R) (BS) via Intra-coronary. 17:19:44 The RCA was injected and visualized at various angles. OMNIPAQUE, 350 MG, 150ML 150ML used . 17:20:54 Catheter was removed 17:20:56 Case End 17:21:19 HR=81 bpm, CTOG=108/60 mmhg, SpO2=98.0 %, Resp=15 B/min, Pain=0, Kierra=10, Ramirez=2 17:22:56 An injection in the Fem Art (right) was made through the SHEATH, FR5 TERUMO (10CM) FR 5. Assessment: Final Case, HR=79 BPM, Rhythm=nsr, LKJK=022/60 mmhg, Chest Pain=0, Edema=None, [place] r=Normal, Skin = Warm, Dry Right Pulses: Ken Ped=2, Femoral=2 17:23:55 Left Pulses: Ken Ped=2, Femoral=2 Neurological: State=Alert, Ox3, REDDY Respiration: Resp=15 B/min, SpO2=97 % 17:24:24 VASCADE, FR5 CLOSURE SYSTEM FR 5 placement in the Fem Art (right) 17:26:16 HR=78 bpm, UQKN=697/63 mmhg, SpO2=99.0 %, Resp=16 B/min, Pain=0, Kierra=10, Ramirez=2 17:29:37 Sterile dressing applied to site 17:29:37 No case complications noted. 17:29:38 Cine recording checked. 17:29:41 Bedside Report will be given. 17:29:42 Verbal Stimulation=2 Physical Stimulation=2 Airway=2 Respiration=2 TOTAL=8. (0=absent, 1=li mited, 2=present) 17:29:52 A Left Heart Cath was performed. 17:31:15 HR=78 bpm, PEIS=858/65 mmhg, SpO2=99.0 %, Resp=16 B/min, Pain=0, Kierra=10, Ramirez=2 17:36:17 HR=75 bpm, CNVJ=978/70 mmhg, SpO2=99.0 %, Resp=41 B/min, Pain=0, Kierra=10, Ramirez=2 17:38:16 Vitals capture stopped. 17:38:19 Patient moved to stretcher End Study - Contrast Media Used In Study Contrast Total Opened (mL) Total Used (mL) Total Wasted (mL) Omnipaque 120 120 0 End Study - Maximum Contrast Load Max Contrast Load (mL) 307.1 End Study - Radiation Exposure Fluoro Time (minutes) 1.8 End Study - Patient Disposition Complications Transferred To Interventional Outcome No Furnace Caretaker Holding No attempt made
[2017-07-26] MEDS ORDERED: SODIUM CHLOR 0.9% 1000 ML INJ 500 ML IV SCH (17:39)
[2017-07-26 18:01] LABS: CHOLESTEROL/ HDL RATIO 2.5 RATIO; HDL CHOLESTEROL 92.3 MG/DL (40.0-60.0)
[2017-07-26] MEDS: MORPHINE SULFATE 4 MG/ML INJ IV PUSH PRN ×4 (19:38→23:23)
[2017-07-26] MEDS: ATORVASTATIN 10 MG TAB PO SCH (20:39)
--- NOTE | 2017-07-26 21:58 | MR ---
cc: Clifford Irwin MD, Otakar MD DATE: 07/26/2017 INDICATION: Non-ST elevation myocardial infarction, class IV angina. PROCEDURE PERFORMED: 1. Retrograde left heart catheterization with left ventriculography and selective coronary angiography. 2. Moderate sedation. ACCESS SITE: Right femoral artery. EQUIPMENT USED: 5-Macanese pigtail. 5-Macanese JR4 and AR modified coronary artery catheters. MEDICATIONS: Versed IV, fentanyl IV CONTRAST: Omnipaque 120 mL COMPLICATIONS: None. ESTIMATED BLOOD LOSS: Less than 10 mL METHOD OF HEMOSTASIS Vascade closure. RESULTS: A. HEMODYNAMICS: Heart rate 78 beats per minute. Left ventricular end-diastolic pressure 13 mmHg. Left ventricle 120/13, aorta 110/63/87. B: LEFT VENTRICULOGRAPHY Ejection fraction 55% with small area of mid anterolateral hypokinesis. C: CORONARY ANGIOGRAPHY Left main coronary artery patent. Left anterior descending artery has 20% stenosis in the mid portion. D1 has 30% ostial stenosis. Left circumflex artery is patent. OM1 is patent. Right coronary artery is a dominant vessel with 20% stenosis in the mid portion. There is catheter-induced spasm in the proximal vessel, which completely resolved with IC nitroglycerin. DIAGNOSES: 1. Mild nonobstructive coronary artery disease. 2. Preserved left ventricular systolic function. DISPOSITION: The patient can be reassured about her cardiac status. Her cardiac catheterization reveals no evidence of significant obstructive coronary artery disease and preserved left ventricular systolic function. I recommend to continue medical management including aggressive modification of her cardiac risk factors. She was strongly encouraged to quit smoking. Clifford Irwin MD OQ/SA/ , 05:37 PM , 05:57 PM ALBERTA
[2017-07-27] VITALS (24 sets, daily range): BP systolic 109–128; BP diastolic 55–65; PULSE 55–80; RESP 18–20; TEMP 97.4–98.8; O2SAT 96–98
[2017-07-27] MEDS: MORPHINE SULFATE 4 MG/ML INJ IV PUSH PRN ×2 (00:41→02:40)
[2017-07-27] MEDS ORDERED: EPINEPHrine HCL (1:10,000) 1 MG/10 ML SYRINGE ONE (01:07)
[2017-07-27] MEDS ORDERED: ATROPINE SULFATE 1 MG/10 ML SYRINGE ONE (01:07)
[2017-07-27] MEDS ORDERED: IOHEXOL 350 MG/ML 10 ML VIAL (for RAD DIAG) IVCONTRAST ONE (01:46)
[2017-07-27] MEDS ORDERED: HEPARIN - 10,000 UNITS/ML IV ADDITIVE IV PUSH STA (02:18)
[2017-07-27] MEDS ORDERED: HEPARIN-D5W 25,000 U/250 ML 250 ML IV PRN (02:30)
[2017-07-27] MEDS ORDERED: HEPARIN SODIUM - IV 10,000 UNITS/10 ML VIAL IV PUSH ONE (02:30)
--- NOTE | 2017-07-27 02:45 | RADRPT ---
EXAM DATE/TIME: 07/27/2017 01:19 [place] COMPARISON: No previous studies available for comparison. INDICATIONS : Cold and painful right leg post cardiac cath. IV CONTRAST: 75 cc Omnipaque 350 (iohexol) IV RADIATION DOSE: 10.15 CTDIvol (mGy) MEDICAL HISTORY : Cardiovascular disease. SURGICAL HISTORY : Hysterectomy. Cholecystectomy.Cardiac cath. ENCOUNTER: Initial ACUITY: 1 day PAIN SCALE: 6/10 LOCATION: Right leg TECHNIQUE: Volumetric scanning was performed using a multi-row detector CT scanner. The data was post processed with a variety of visualization algorithms including full volume maximum intensity projection, multi -planar sliding thin slab reformation, curved planar reformation, and surface rendering techniques. Using automated exposure control and adjustment of the mA and/or kV according to patient size, radiat ion dose was kept as low as reasonably achievable to obtain optimal diagnostic quality images. DICO M format image data is available electronically for review and comparison. FINDINGS: Abdominal aorta: Mild, scattered atherosclerotic calcification. Aorta is widely patent without aneurysmal disease. Sin gle bilateral renal arteries are patent. Mesenteric vessels are patent. Pelvis: Bilateral atherosclerotic calcification in the common iliac arteries with mild luminal narrowing of t he right common iliac artery. Left iliac system is patent throughout. Right external iliac occludes a bruptly proximally with collateral reconstitution of the common femoral. Right lower extremity: Profunda and SFA are patent. Popliteal is patent down to the knee joint were then occludes abruptly. There is collateral reconstitution of all 3 trifurcation vessels which are then patent into the ankle and foot. Left lower extremity: Profunda SFA and popliteal are patent. 3 vessel runoff. Miscellaneous: Patient is status post cholecystectomy and hysterectomy. Abdominal and pelvic viscera are otherwise i ntact CONCLUSION: 1. Abrupt occlusion of the proximal right external iliac with collateral reconstitution of the right common femoral. 2. On the right, the profunda, SFA and ylbgt-zbr-ntju articular patent with abrupt occlusion of the j uxta-articular portion of the popliteal concern for an embolic event. Collateral reconstitution of th e trifurcation vessels. All 3 are patent into the ankle and foot. 3. Inflow and outflow is adequate on the left. 4. Mesenteric and renal vessels are patent. Johnathon Luis MD on July 27, 2017 at 2:35 Board Certified Radiologist. This report was verified electronically.
[2017-07-27 03:42] LABS: HEMATOCRIT 38.7 % (35.0-46.0); MEAN CELL VOLUME 92.9 FL (80.0-100.0); MEAN CORPUSCULAR HEMOGLOBIN 31.2 PG (27.0-34.0); MEAN CORPUSCULAR HGB CONC 33.6 % (32.0-36.0); MEAN PLATELET VOLUME 8.9 FL (7.0-11.0); PLATELET COUNT 213 TH/MM3 (150-450); RED BLOOD COUNT 4.17 MIL/MM3 (4.00-5.30); RED CELL DISTRIBUTION WIDTH 14.4 % (11.6-17.2)
[2017-07-27 03:45] LABS: BICARBONATE 26.5 MEQ/L (21.0-32.0); CALCIUM 8.4 MG/DL (8.5-10.1); CREATININE 0.64 MG/DL (0.50-1.00)
[2017-07-27] MEDS ORDERED: POVIDONE IODINE 5% (ANTISEPSIS KIT) 4 APPLICATIONS EACH NARE PRN ×2 (03:45→04:00)
[2017-07-27] MEDS ORDERED: CHLORHEXIDINE GLUCONATE 2 % 1 PACK (2 CLOTHS) TOPICAL PRN ×2 (03:45→04:00)
[2017-07-27] MEDS ORDERED: SODIUM CHLORID 0.9% 500 ML IV PRN ×2 (03:45→04:00)
[2017-07-27] MEDS ORDERED: LACTATED RINGER'S 1000 ML IV PRN ×2 (03:45→04:00)
[2017-07-27 03:58] LABS: INTERNATIONAL NORMALIZED RATIO 1.1 RATIO
--- NOTE | 2017-07-27 04:19 | PD.VS.CON ---
History of Present Illness Chief Complaint: ischemic RIGHT leg Consult Requested by: Medical service History of Present Illness 67 yo female with cold R leg after diagnostic LHC yesterday. Complained of pain after procedure and overnight developed motor dysfunction, only minimally improved after heparin bolus. Adm with SOB and LHC by report showed only mild CAD without any intervention performed. Pt denies CP or SOB at present outside of her usual COPD. Does endorse R foot numbness and pain. Past/Family/Social History Past Medical History COPD minimal CAD tobacco abuse Past Surgical History CECE tonsillectomy mary bone graft R leg Social History + tobacco Family History NC Home Medications No Active Prescriptions or Reported Meds Coded Allergies: No Known Allergies (Verified Allergy, Unknown, 07/25/17) Review of Systems Respiratory: COMPLAINS OF: Shortness of breath Cardiovascular: COMPLAINS OF: Dyspnea on Exertion, DENIES: Chest pain Physical Exam Vitals/I&O Date Time Temp Pulse Resp B/P (MAP) Pulse Ox O2 Delivery O2 Flow Rate FiO2 07/27/17 00:00 68 07/26/17 23:39 98.8 77 18 100/55 (70) 96 07/26/17 23:00 68 07/26/17 22:00 76 07/26/17 21:05 98 Nasal Cannula 2.00 07/26/17 21:00 76 07/26/17 20:00 86 07/26/17 19:10 98.7 84 16 135/78 (97) 96 07/26/17 19:00 88 07/26/17 18:05 75 07/26/17 16:01 65 07/26/17 15:00 83 07/26/17 15:00 98.4 83 20 93/50 (64) 97 07/26/17 14:00 88 07/26/17 13:00 70 07/26/17 12:00 69 07/26/17 11:00 91 07/26/17 11:00 98.2 79 19 107/58 (74) 95 07/26/17 10:00 74 07/26/17 09:00 92 07/26/17 08:30 102/58 (73) 07/26/17 08:00 101 07/26/17 07:15 99 Nasal Cannula 3.00 07/26/17 07:15 98.7 103 19 97/57 (70) 92 07/26/17 07:15 75 07/26/17 06:00 74 07/26/17 05:00 78 Neuro: alert, oriented, no distress HEENT: NC/AT; anicteric sclera Neck: no JVD Heart: reg rate Lungs: clear B Vascular: palpable L femoral pulse; no palpable R femoral, popliteal, pedal pulses Extremities: R foot cool, pale, diminished motor function calf not tender to squeezing Laboratory Tests Test 07/26/17 06:55 07/26/17 12:34 07/27/17 03:15 Activated Partial Thromboplast Time 55.8 41.6 86.1 Blood Urea Nitrogen 22 21 Creatinine 0.71 0.64 Random Glucose 101 89 Calcium Level 9.2 8.4 Sodium Level 141 142 Potassium Level 4.0 4.1 Chloride Level 105 108 Carbon Dioxide Level 27.4 26.5 Anion Gap 9 8 Estimat Glomerular Filtration Rate 82 92 Triglycerides Level 91 Cholesterol Level 231 LDL Cholesterol 121 HDL Cholesterol 92.3 Cholesterol/HDL Ratio 2.50 White Blood Count 10.0 Red Blood Count 4.17 Hemoglobin 13.0 Hematocrit 38.7 Mean Corpuscular Volume 92.9 Mean Corpuscular Hemoglobin 31.2 Mean Corpuscular Hemoglobin Concent 33.6 Red Cell Distribution Width 14.4 Platelet Count 213 Mean Platelet Volume 8.9 Prothrombin Time 11.0 Prothromb Time International Ratio 1.1 Date/Time Source Procedure Growth Status 07/25/17 12:40 Nasal Washing Influenza Types A,B Antigen (PARISH) - Final NEGATIVE FOR FLU A AND B ANTIGEN.... Complete 07/25/17 17:00 Urine Clean Catch Urine Culture - Preliminary IMMATURE GROWTH - REINCUBATE Resulted Last 48 hours Impressions Aorta w/Runoff CTA 07/27/17 0000 Signed Impressions: Service Date/Time: Thursday, July 27, 2017 01:19 - CONCLUSION: 1. Abrupt occlusion of the proximal right external iliac with collateral reconstitution of the right common femoral. 2. On the right, the profunda, SFA and above-the- knee articular patent with abrupt occlusion of the juxta-articular portion of the popliteal concern for an embolic event. Collateral reconstitution of the trifurcation vessels. All 3 are patent into the ankle and foot. 3. Inflow and outflow is adequate on the left. 4. Mesenteric and renal vessels are patent. Johnathon Luis MD Chest X-Ray 07/25/17 1203 Signed Impressions: Service Date/Time: Tuesday, July 25, 2017 12:13 - CONCLUSION: No acute disease. 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 Given motor dysfunction, will proceed to OR for embolectomy and possible groin reconstruction, possible fasciotomy 2. Discussed risks and benefits with patient who agrees; consents obtained. 3. Operative site marked 4. To OR. Discharge Planning 3-4 days after surgery Pedrito Armstrong MD July 27, 2017 04:19
[2017-07-27] MEDS ORDERED: fentaNYL CITRATE 250 MCG/5 ML AMP ONE (04:30)
[2017-07-27] MEDS ORDERED: HEPARIN SODIUM - IV 10,000 UNITS/10 ML VIAL ONE (05:00)
[2017-07-27] MEDS ORDERED: HEPARIN-NS/PF INJ 500 ML ONE (05:00)
[2017-07-27] MEDS ORDERED: PROTAMINE SULFATE 50 MG/5 ML VIAL ONE (05:00)
[2017-07-27] MEDS ORDERED: ceFAZolin 2 GM PREMIX 50 ML ONE (05:00)
[2017-07-27] MEDS ORDERED: THROMBIN (TOPICAL) 20,000 UNIT SPRAY KIT ONE (05:01)
[2017-07-27] MEDS ORDERED: BUPIVACAINE HCL PF 0.5% 30 ML VIAL ONE (05:01)
--- NOTE | 2017-07-27 06:39 | HHI.PR ---
cc: Pedrito Armstrong MD; Clifford Irwin MD Immediate Post Op Note Procedure Date: July 27, 2017 Pre Op Diagnosis: Acute R LE ischemia Post Op Diagnosis: Acute R LE ischemia Surgeon: Pedrito Armstrong Knife Setter Grinder Machine(s): Young Ralph Procedure: 1. R iliac embolectomy 2. R popliteal embolectomy 3. R BATTERBOARD SETTER patch angioplasty Findings: acute thrombus in iliac and popliteal arteries palapble femoral pulse and strong Doppler signal in PT at conclusion of case Complications: none Specimen(s) removed: none for pathology Estimated blood loss: 200mL Anesthesia: General Drains: None Fluids: 1000mL IVF Urinary Output (mLs): 200 Patient to: PACU Patient Condition: Good Implant/Devices: SEE IMPLANT LOG (if applicable) Date/Time of Procedure: SEE SURGICAL CARE RECORD Pedrito Armstrong MD July 27, 2017 06:39
[2017-07-27] MEDS ORDERED: DO NOT ADM ANY ANTICOAGULANT DRUGS PRN (07:02)
--- NOTE | 2017-07-27 07:03 | MP ---
cc: Pedrito Armstrong MD DATE OF OPERATION: 07/27/2017 PREOPERATIVE DIAGNOSIS: Acute right lower extremity ischemia, status post left heart catheterization. POSTOPERATIVE DIAGNOSIS: Acute right lower extremity ischemia, status post left heart catheterization. PROCEDURE: 1. Right iliac embolectomy via leg incision. 2. Right popliteal embolectomy via leg incision. 3. Right common femoral artery patch angioplasty with bovine pericardium. ATTENDING SURGEON: Pedrito Armstrong MD. COMM[employer]STATE PARALEGAL SURGEON: Young Ralph ANESTHESIA: General. INDICATIONS: Ms. Rosado is a 67-year-old lady who has had a left heart catheterization yesterday via right groin cannulation. Overnight, she developed acute limb ischemia with motor dysfunction and was taken to the operating room emergently. DESCRIPTION OF PROCEDURE: Informed consent was obtained from the patient. She was taken to the operating room, placed supine on the operating room table and an appropriate time-out was taken to ensure the patient's identity, operative site and planned procedure. Two grams of Ancef was initiated prior to the skin incision and will be discontinued after a single preoperative dose. Everyone in the room agreed with the time-out and we proceeded. She was prepped from her nipples to her toes. A vertical incision made in the patient's right groin and carried down to the subcutaneous tissue with electrocautery. The external iliac artery, common femoral artery, profunda and SFA were all dissected free. The patient was systemically heparinized with 4000 units of IV heparin. Proximal and distal control of the external iliac arteries, profunda and SFA were clamped to the right with profunda clamps and a longitudinal arteriotomy was made with an 11 blade, extended with [place] scissors. A Parul embolectomy catheter was passed cephalad and fresh thrombus was retrieved from the iliac artery. After several passes of the Parul catheter, a nice pulsatile blood flow was encountered. The clamp was then reapplied to the external iliac artery. Good backbleeding was encountered from the profunda and the SFA was embolectomized with a #3 Parul as well. Fresh thrombus was encountered until backbleeding was quite brisk. The clamps were reapplied. Bovine pericardial patch was brought up on the field and the endarterectomized artery was patched with a bovine pericardium using running 5-0 Prolene suture. At the completion, the clamps were released. There was a nice palpable pulse in the common femoral artery through the patch, as well as profunda and proximal SFA. There was a good Doppler signal in the posterior tibial to the foot. The wound was infiltrated with Marcaine and closed with 2-0 Polysorb in 2 layers, 3-0 Polysorb and 4-0 Monocryl. The sponge and needle counts were correct at the end of the case. I was present and scrubbed for the entire procedure. MD AUREA Izaguirre/NEIL , 06:48 AM , 07:02 AM [email or web address]
[2017-07-27] MEDS: RESP: ALBUTEROL 2.5 MG/IPRATROPIUM 0.5 MG NEB (SCH) NEB ×3 (07:33→20:50)
[2017-07-27 07:46] LABS: AUTOMATED NEUTROPHIL # 8.5 TH/MM3 (1.8-7.7); BASOPHIL # 0.1 TH/MM3 (0-0.2); BASOPHIL % 0.7 % (0.0-2.0); EOSINOPHIL # 0.4 TH/MM3 (0-0.4); EOSINOPHIL % 3.5 % (0.0-4.0); HEMATOCRIT 38.1 % (35.0-46.0); HEMOGLOBIN 12.4 GM/DL (11.6-15.3); LYMPH % 14.7 % (9.0-44.0); LYMPHOCYTE # 1.6 TH/MM3 (1.0-4.8); MEAN CELL VOLUME 94.1 FL (80.0-100.0); MEAN CORPUSCULAR HEMOGLOBIN 30.6 PG (27.0-34.0); MEAN CORPUSCULAR HGB CONC 32.6 % (32.0-36.0); MEAN PLATELET VOLUME 8.6 FL (7.0-11.0); MONO % 4.2 % (0.0-8.0); MONOCYTE # 0.5 TH/MM3 (0-0.9); NEUT % 76.9 % (16.0-70.0); PLATELET COUNT 215 TH/MM3 (150-450); RED BLOOD COUNT 4.05 MIL/MM3 (4.00-5.30); RED CELL DISTRIBUTION WIDTH 14.3 % (11.6-17.2); WHITE BLOOD COUNT 11.1 TH/MM3 (4.0-11.0)
[2017-07-27 07:55] LABS: INTERNATIONAL NORMALIZED RATIO 1.1 RATIO; PROTHROMBIN TIME - PATIENT 10.9 SEC (9.8-11.6)
[2017-07-27] MEDS: METOPROLOL TARTRATE 25 MG TAB PO SCH ×2 (08:50→20:32)
[2017-07-27] MEDS: ASPIRIN 325 MG TAB PO SCH (08:51)
[2017-07-27] MEDS: SODIUM CHLORIDE 0.9% FLUSH 10 ML FLUSH IV FLUSH SCH ×2 (08:53→20:33)
--- NOTE | 2017-07-27 09:04 | HHI.PR ---
Subjective Remarks Follow-up CAD, COPD. Patient developed acute right lower extremity ischemia following left heart catheterization. She was evaluated by vascular surgery and taken to the operating room earlier this morning for embolectomy. She states that she feels tired, but pain is well controlled. Objective Vitals Vital Signs Date Time Temp Pulse Resp B/P (MAP) Pulse Ox O2 Delivery O2 Flow Rate FiO2 07/27/17 08:00 98.0 71 14 131/69 (89) 95 Nasal Cannula 2 07/27/17 08:00 97.4 70 19 115/65 (82) 97 07/27/17 07:45 68 14 137/74 (95) 95 Nasal Cannula 2 07/27/17 07:30 72 14 136/69 (91) 96 Nasal Cannula 2 07/27/17 07:15 68 14 153/71 (98) 96 Nasal Cannula 2 07/27/17 07:00 98.0 73 14 139/64 (89) 100 Nasal Cannula 3 07/27/17 05:00 80 07/27/17 04:00 98.8 80 18 128/61 (83) 96 07/27/17 04:00 79 07/27/17 03:00 72 07/27/17 02:00 74 07/27/17 01:00 68 07/27/17 00:00 68 07/26/17 23:39 98.8 77 18 100/55 (70) 96 07/26/17 23:00 68 07/26/17 22:00 76 07/26/17 21:05 98 Nasal Cannula 2.00 07/26/17 21:00 76 07/26/17 20:00 86 07/26/17 19:10 98.7 84 16 135/78 (97) 96 07/26/17 19:00 88 07/26/17 18:05 75 07/26/17 16:01 65 07/26/17 15:00 83 07/26/17 15:00 98.4 83 20 93/50 (64) 97 07/26/17 14:00 88 07/26/17 13:00 70 07/26/17 12:00 69 07/26/17 11:00 91 07/26/17 11:00 98.2 79 19 107/58 (74) 95 07/26/17 10:00 74 07/26/17 09:00 92 I/O 07/26/17 07/26/17 07/26/17 07/27/17 07/27/17 07/27/17 07:00 15:00 23:00 07:00 15:00 23:00 Intake Total 300 ml 872 ml 1100 ml Output Total 1200 ml Balance 300 ml 872 ml -100 ml Intake Oral 300 ml 240 ml 100 ml IV Total 632 ml Other 1000 ml Output Urine Total 1000 ml Estimated Blood Loss 200 ml # Voids 1 2 # Bowel Movements 0 0 Result Diagram: 07/27/17 0734 07/27/17 0315 Imaging Last Impressions Aorta w/Runoff CTA 07/27/17 0000 Signed Impressions: Service Date/Time: Thursday, July 27, 2017 01:19 - CONCLUSION: 1. Abrupt occlusion of the proximal right external iliac with collateral reconstitution of the right common femoral. 2. On the right, the profunda, SFA and above-the- knee articular patent with abrupt occlusion of the juxta-articular portion of the popliteal concern for an embolic event. Collateral reconstitution of the trifurcation vessels. All 3 are patent into the ankle and foot. 3. Inflow and outflow is adequate on the left. 4. Mesenteric and renal vessels are patent. Johnathon Luis MD Chest X-Ray 07/25/17 1209 Signed Impressions: Service Date/Time: Tuesday, July 25, 2017 12:13 - CONCLUSION: No acute disease. Cornell Moreland MD Objective Remarks General: No acute distress. Heart: Regular rate and rhythm. No murmur. Lungs: Mild scattered wheeze. Breathing is nonlabored. Abdomen: Soft, nontender, nondistended. Extremities: No lower extremity edema. Psych: Alert and oriented. Neuro: Normal speech. No focal deficits noted. Skin: Right groin wound Procedures 07/26/17 cardiac catheterization 07/27/17 right iliac embolectomy, right popliteal embolectomy, right common femoral artery patch angioplasty with bovine pericardium Urinary Catheter: Yes Assessment to: Remove Vascular Central Line Catheter: No A/P Problem List: (1) Acute coronary syndrome ICD Code: I24.9 - Acute ischemic heart disease, unspecified (2) Non-STEMI (non-ST elevated myocardial infarction) ICD Code: I21.4 - Non-ST elevation (NSTEMI) myocardial infarction Status: Acute (3) Hypoxia ICD Code: R09.02 - Hypoxemia (4) Lower limb ischemia ICD Code: I99.8 - Other disorder of circulatory system Assessment and Plan 1. Acute coronary syndrome, non-ST elevation [place]: Appreciate cardiology recommendations. Troponin elevated. Status post cardiac catheterization. Continue heparin drip. Continue aspirin, statin, beta-vee, Nitropaste. 2. Possible alcohol withdrawal: CIWA protocol. 3. COPD: Continue duo nebs, supplemental oxygen. Continue Tessalon Perles for cough. 4. Right lower extremity ischemia: Status post embolectomy by vascular surgery. Good pulses. 5. DVT prophylaxis: Heparin drip. Jamir Crespo MD July 27, 2017 09:04
[2017-07-27] MEDS: HYDROmorphone HCL 2 MG TAB PO PRN ×3 (09:25→20:33)
[2017-07-27] MEDS: NITROGLYCERIN 2% OINT 1 GM PACKET TOP SCH ×3 (11:26→23:30)
[2017-07-27] MEDS ORDERED: IOHEXOL 350 MG/ML 50 ML BTL (for Cath Lab) OTHER ONE (11:53)
[2017-07-27] MEDS ORDERED: IOHEXOL 350 MG/ML 100 ML BTL (for Cath Lab) OTHER ONE (11:53)
[2017-07-27] MEDS ORDERED: NEOSTIGMINE 5 MG/5 ML SYRINGE IV PUSH ONE (12:00)
[2017-07-27] MEDS ORDERED: PHENYLEPH/NS 1000 MCG/10 ML SYR IV ONE (12:00)
[2017-07-27] MEDS ORDERED: ONDANSETRON HCL 4 MG/2 ML VIAL IV ONE (12:00)
[2017-07-27] MEDS ORDERED: SODIUM CHLORID 0.9% 500 ML INJ 500 ML IV ONE (12:00)
[2017-07-27] MEDS ORDERED: DEXAMETHASONE SOD PHOS 4 MG/ML VIAL IV ONE (12:00)
[2017-07-27] MEDS ORDERED: GLYCOPYRROLATE 1 MG/5 ML SYRINGE IV PUSH ONE (12:00)
[2017-07-27] MEDS ORDERED: PROPOFOL 200 MG/20 ML AMP IV ONE (12:00)
[2017-07-27] MEDS ORDERED: ePHEDrine/NS 25 MG/5 ML SYRINGE IV ONE (12:00)
[2017-07-27] MEDS ORDERED: LIDOCAINE HCL 1% PF 5 ML SYRINGE OTHER ONE (12:00)
[2017-07-27] MEDS ORDERED: ROCURONIUM INJ 50 MG/5 ML SYRINGE IV PUSH ONE (12:00)
[2017-07-27] MEDS ORDERED: LACTATED RINGER'S 1000 ML INJ 1,000 ML IV ONE (12:00)
[2017-07-27] MEDS: HEPARIN-D5W 25,000 U/250 ML 250 ML IV PRN (13:52)
--- NOTE | 2017-07-27 17:59 | PD.CARD.PN ---
Subjective Subjective Remarks No CP or SOB, R groin stable; she underwent R iliac and popliteal embolectomy due to a cold leg by Dr. Armstrong this AM Objective Medications Current Medications Medications (Trade) Dose Ordered Sig/Regina Route Start Time Stop Time Status Last Admin (NS Flush) 2 ml BID IV FLUSH 07/25/17 21:00 07/27/17 08:53 (NS Flush) 2 ml UNSCH PRN IV FLUSH 07/25/17 15:45 (Nitroglycerin 2% Oint) 0.5 inch Q6HR TOP 07/25/17 18:00 07/27/17 17:32 (Morphine Inj) 2 mg Q30M PRN IV PUSH 07/25/17 15:45 07/27/17 02:40 (Tylenol) 650 mg Q6H PRN PO 07/25/17 15:45 (Colace) 100 mg BID PRN PO 07/25/17 15:45 (Xanax) 0.25 mg Q8H PRN PO 07/25/17 15:45 07/26/17 08:40 (Zofran Inj) 4 mg Q6H PRN IV PUSH 07/25/17 15:45 07/26/17 08:38 (Lopressor) 12.5 mg BID PO 07/25/17 21:00 07/27/17 08:50 (Lipitor) 10 mg HS PO 07/25/17 21:00 07/26/17 20:39 (Duoneb Neb) 1 ampule Q6HR WHILE AWAKE NEB NEB 07/25/17 20:00 07/27/17 13:33 (Romazicon Inj) 0.2 mg Q1M PRN IV PUSH 07/26/17 09:00 (Ativan) 1 mg Q4H PRN PO 07/26/17 09:00 (Ativan Inj) 1 mg Q4H PRN IV PUSH 07/26/17 09:00 (Ativan) 2 mg Q2H PRN PO 07/26/17 09:00 (Ativan Inj) 2 mg Q2H PRN IV PUSH 07/26/17 09:00 (Ativan Inj) 2 mg Q1H PRN IV PUSH 07/26/17 09:00 (Ativan Inj) 2 mg Q15M PRN IV PUSH 07/26/17 09:00 (Tessalon) 100 mg TID PRN PO 07/26/17 09:00 07/26/17 10:50 (Albuterol Neb) 2.5 mg Q2HR NEB PRN NEB 07/26/17 09:00 Lactated Ringer's 1,000 ml @ 30 mls/hr Q24H PRN IV 07/27/17 03:45 07/30/17 03:44 Sodium Chloride 500 ml @ 30 mls/hr [id number] PRN IV 07/27/17 03:45 07/30/17 03:44 (Betadine 5% Antisepsis Kit) 1 applic ENRICHMENT ASSISTANT PRN EACH NARE 07/27/17 03:45 07/30/17 03:44 (Chlorhexidine 2% Cloth) 3 pack ENRICHMENT ASSISTANT PRN TOPICAL 07/27/17 03:45 07/30/17 03:44 Lactated Ringer's 1,000 ml @ 30 mls/hr Q24H PRN IV 07/27/17 04:00 07/30/17 03:59 Sodium Chloride 500 ml @ 30 mls/hr [id number] PRN IV 07/27/17 04:00 07/30/17 03:59 (Betadine 5% Antisepsis Kit) 1 applic ENRICHMENT ASSISTANT PRN EACH NARE 07/27/17 04:00 07/30/17 03:59 (Chlorhexidine 2% Cloth) 3 pack ENRICHMENT ASSISTANT PRN TOPICAL 07/27/17 04:00 07/30/17 03:59 Heparin Sodium/ Dextrose 250 ml @ 8 mls/hr TITRATE PRN IV 07/27/17 10:00 07/27/17 13:52 (Aspirin) 325 mg DAILY PO 07/27/17 09:00 07/27/17 08:51 (Roxicodone) 5 mg Q4H PRN PO 07/27/17 06:45 07/27/17 11:27 (Dilaudid) 2 mg Q4H PRN PO 07/27/17 06:45 07/27/17 13:46 ([facility] Nursing Information) ALL NURSING DEPARTME... UNSCH PRN .XX 07/27/17 07:02 07/28/17 07:01 Vital Signs / I&O Vital Signs Date Time Temp Pulse Resp B/P (MAP) Pulse Ox O2 Delivery O2 Flow Rate FiO2 07/27/17 17:00 72 07/27/17 16:00 78 07/27/17 15:00 69 07/27/17 15:00 98.3 79 20 114/57 (76) 96 07/27/17 14:00 69 07/27/17 13:36 97 Nasal Cannula 2.00 07/27/17 13:00 61 07/27/17 12:00 71 07/27/17 11:00 97.9 61 19 109/55 (73) 98 07/27/17 11:00 55 07/27/17 10:38 19 07/27/17 10:00 65 07/27/17 09:00 63 07/27/17 08:23 63 07/27/17 08:00 98.0 71 14 131/69 (89) 95 Nasal Cannula 2 07/27/17 08:00 97.4 70 19 115/65 (82) 97 07/27/17 07:45 68 14 137/74 (95) 95 Nasal Cannula 2 07/27/17 07:30 72 14 136/69 (91) 96 Nasal Cannula 2 07/27/17 07:15 68 14 153/71 (98) 96 Nasal Cannula 2 07/27/17 07:00 98.0 73 14 139/64 (89) 100 Nasal Cannula 3 07/27/17 05:00 80 07/27/17 04:00 98.8 80 18 128/61 (83) 96 07/27/17 04:00 79 07/27/17 03:00 72 07/27/17 02:00 74 07/27/17 01:00 68 07/27/17 00:00 68 07/26/17 23:39 98.8 77 18 100/55 (70) 96 07/26/17 23:00 68 07/26/17 22:00 76 07/26/17 21:05 98 Nasal Cannula 2.00 07/26/17 21:00 76 07/26/17 20:00 86 07/26/17 19:10 98.7 84 16 135/78 (97) 96 07/26/17 19:00 88 07/26/17 18:05 75 I/O 07/26/17 07/26/17 07/26/17 07/27/17 07/27/17 07/27/17 07:00 15:00 23:00 07:00 15:00 23:00 Intake Total 300 ml 872 ml 1100 ml 510 ml Output Total 1200 ml 400 ml Balance 300 ml 872 ml -100 ml 110 ml Intake Oral 300 ml 240 ml 100 ml 480 ml IV Total 632 ml 30 ml Other 1000 ml Output Urine Total 1000 ml 400 ml Estimated Blood Loss 200 ml # Voids 1 2 # Bowel Movements 0 0 Physical Exam GENERAL: In NAD. SKIN: Warm and dry. HEAD: Normocephalic. EYES: No scleral icterus. No injection or drainage. NECK: Supple, trachea midline. No JVD or lymphadenopathy. CARDIOVASCULAR: Regular rate and rhythm without murmurs, gallops, or rubs. RESPIRATORY: Breath sounds equal bilaterally. No accessory muscle use. GASTROINTESTINAL: Abdomen soft, non-tender, nondistended. MUSCULOSKELETAL: No cyanosis, or edema. Laboratory Laboratory Tests Test 07/27/17 03:15 07/27/17 07:34 07/27/17 12:25 07/27/17 13:15 White Blood Count 10.0 TH/MM3 11.1 TH/MM3 Red Blood Count 4.17 MIL/MM3 4.05 MIL/MM3 Hemoglobin 13.0 GM/DL 12.4 GM/DL Hematocrit 38.7 % 38.1 % Mean Corpuscular Volume 92.9 FL 94.1 FL Mean Corpuscular Hemoglobin 31.2 PG 30.6 PG Mean Corpuscular Hemoglobin Concent 33.6 % 32.6 % Red Cell Distribution Width 14.4 % 14.3 % Platelet Count 213 TH/MM3 215 TH/MM3 Mean Platelet Volume 8.9 FL 8.6 FL Prothrombin Time 11.0 SEC 10.9 SEC Prothromb Time International Ratio 1.1 RATIO 1.1 RATIO Activated Partial Thromboplast Time 86.1 SEC 209.6 SEC 32.1 SEC 25.8 SEC Blood Urea Nitrogen 21 MG/DL Creatinine 0.64 MG/DL Random Glucose 89 MG/DL Calcium Level 8.4 MG/DL Sodium Level 142 MEQ/L Potassium Level 4.1 MEQ/L Chloride Level 108 MEQ/L Carbon Dioxide Level 26.5 MEQ/L Anion Gap 8 MEQ/L Estimat Glomerular Filtration Rate 92 ML/MIN Neutrophils (%) (Auto) 76.9 % Lymphocytes (%) (Auto) 14.7 % Monocytes (%) (Auto) 4.2 % Eosinophils (%) (Auto) 3.5 % Basophils (%) (Auto) 0.7 % Neutrophils # (Auto) 8.5 TH/MM3 Lymphocytes # (Auto) 1.6 TH/MM3 Monocytes # (Auto) 0.5 TH/MM3 Eosinophils # (Auto) 0.4 TH/MM3 Basophils # (Auto) 0.1 TH/MM3 CBC Comment DIFF FINAL Differential Comment Imaging Last 24 hours Impressions Aorta w/Runoff CTA 07/27/17 0000 Signed Impressions: Service Date/Time: Thursday, July 27, 2017 01:19 - CONCLUSION: 1. Abrupt occlusion of the proximal right external iliac with collateral reconstitution of the right common femoral. 2. On the right, the profunda, SFA and above-the- knee articular patent with abrupt occlusion of the juxta-articular portion of the popliteal concern for an embolic event. Collateral reconstitution of the trifurcation vessels. All 3 are patent into the ankle and foot. 3. Inflow and outflow is adequate on the left. 4. Mesenteric and renal vessels are patent. Johnathon Luis MD Assessment and Plan Problem List: (1) Elevated troponin ICD Codes: R74.8 - Abnormal levels of other serum enzymes (2) CAD (coronary artery disease) ICD Codes: I25.10 - Atherosclerotic heart disease of [place] coronary artery without angina pectoris (3) Lower limb ischemia ICD Codes: I99.8 - Other disorder of circulatory system (4) Acute respiratory failure with hypoxia ICD Codes: J96.01 - Acute respiratory failure with hypoxia Status: Acute Assessment and Plan Cath yest showed mild CAD. She developed cold leg and underwent embolectomy by Dr. Armstrong this AM, now stable. Continue IV heparin. Continue risk factor modification. Increase activity. Clifford Irwin MD July 27, 2017 17:59
[2017-07-27] MEDS: ATORVASTATIN 10 MG TAB PO SCH (20:33)
[2017-07-28] VITALS (23 sets, daily range): BP systolic 112–149; BP diastolic 56–77; PULSE 63–104; RESP 16–20; TEMP 97.9–99.8; O2SAT 96–100
[2017-07-28 01:52] LABS: AUTOMATED NEUTROPHIL # 5.6 TH/MM3 (1.8-7.7); BASOPHIL % 0.5 % (0.0-2.0); EOSINOPHIL # 0.2 TH/MM3 (0-0.4); EOSINOPHIL % 1.9 % (0.0-4.0); HEMATOCRIT 35.2 % (35.0-46.0); HEMOGLOBIN 11.8 GM/DL (11.6-15.3); LYMPHOCYTE # 2.1 TH/MM3 (1.0-4.8); MEAN CORPUSCULAR HEMOGLOBIN 31.5 PG (27.0-34.0); MEAN CORPUSCULAR HGB CONC 33.5 % (32.0-36.0); MEAN PLATELET VOLUME 9.1 FL (7.0-11.0); MONO % 8.1 % (0.0-8.0); MONOCYTE # 0.7 TH/MM3 (0-0.9); NEUT % 65.5 % (16.0-70.0); PLATELET COUNT 191 TH/MM3 (150-450); RED BLOOD COUNT 3.74 MIL/MM3 (4.00-5.30); RED CELL DISTRIBUTION WIDTH 13.9 % (11.6-17.2); WHITE BLOOD COUNT 8.6 TH/MM3 (4.0-11.0)
[2017-07-28 02:13] LABS: BICARBONATE 28.6 MEQ/L (21.0-32.0); CALCIUM 8.4 MG/DL (8.5-10.1); CREATININE 0.56 MG/DL (0.50-1.00)
[2017-07-28] MEDS: MORPHINE SULFATE 4 MG/ML INJ IV PUSH PRN ×3 (03:51→15:25)
[2017-07-28] MEDS: NITROGLYCERIN 2% OINT 1 GM PACKET TOP SCH (06:00)
[2017-07-28] MEDS: RESP: ALBUTEROL 2.5 MG/IPRATROPIUM 0.5 MG NEB (SCH) NEB ×3 (07:23→21:48)
[2017-07-28] MEDS: METOPROLOL TARTRATE 25 MG TAB PO SCH ×2 (08:55→21:11)
[2017-07-28] MEDS: ASPIRIN 325 MG TAB PO SCH (08:55)
[2017-07-28] MEDS: SODIUM CHLORIDE 0.9% FLUSH 10 ML FLUSH IV FLUSH SCH ×2 (08:55→21:10)
[2017-07-28] MEDS: HYDROmorphone HCL 2 MG TAB PO PRN ×2 (09:07→23:00)
--- NOTE | 2017-07-28 09:43 | HHI.PR ---
Subjective Remarks Follow-up CAD, limb ischemia. The patient states that she is feeling "okay". Denies chest pain or dyspnea. Still with some numbness in her feet, right greater than left. No leg pain. Objective Vitals Vital Signs Date Time Temp Pulse Resp B/P (MAP) Pulse Ox O2 Delivery O2 Flow Rate FiO2 07/28/17 07:25 98 Nasal Cannula 2.00 07/28/17 06:00 63 07/28/17 05:00 70 07/28/17 04:00 82 07/28/17 03:56 18 07/28/17 03:00 74 07/28/17 03:00 97.9 74 18 124/60 (81) 97 07/28/17 02:00 70 07/28/17 01:00 68 07/28/17 00:29 18 07/28/17 00:29 18 07/28/17 00:00 72 07/27/17 23:00 75 07/27/17 23:00 97.9 75 18 128/63 (84) 98 07/27/17 22:00 74 07/27/17 21:33 18 07/27/17 21:00 76 07/27/17 20:50 Nasal Cannula 3.00 07/27/17 20:00 80 07/27/17 19:00 72 07/27/17 19:00 98.5 72 18 117/57 (77) 97 07/27/17 18:00 80 07/27/17 17:00 72 07/27/17 16:00 78 07/27/17 15:00 69 07/27/17 15:00 98.3 79 20 114/57 (76) 96 07/27/17 14:00 69 07/27/17 13:36 97 Nasal Cannula 2.00 07/27/17 13:00 61 07/27/17 12:00 71 07/27/17 11:00 97.9 61 19 109/55 (73) 98 07/27/17 11:00 55 07/27/17 10:00 65 I/O 07/27/17 07/27/17 07/27/17 07/28/17 07/28/17 07/28/17 07:00 15:00 23:00 07:00 15:00 23:00 Intake Total 1100 ml 510 ml 240 ml Output Total 1200 ml 400 ml 495 ml Balance -100 ml 110 ml -255 ml Intake Oral 100 ml 480 ml 240 ml IV Total 30 ml Other 1000 ml Output Urine Total 1000 ml 400 ml 495 ml Estimated Blood Loss 200 ml # Bowel Movements 0 Result Diagram: 07/28/17 0134 07/28/17 0134 Imaging Last Impressions Aorta w/Runoff CTA 07/27/17 0000 Signed Impressions: Service Date/Time: Thursday, July 27, 2017 01:19 - CONCLUSION: 1. Abrupt occlusion of the proximal right external iliac with collateral reconstitution of the right common femoral. 2. On the right, the profunda, SFA and above-the- knee articular patent with abrupt occlusion of the juxta-articular portion of the popliteal concern for an embolic event. Collateral reconstitution of the trifurcation vessels. All 3 are patent into the ankle and foot. 3. Inflow and outflow is adequate on the left. 4. Mesenteric and renal vessels are patent. Johnathon Luis MD Chest X-Ray 07/25/17 1209 Signed Impressions: Service Date/Time: Tuesday, July 25, 2017 12:13 - CONCLUSION: No acute disease. Cornell Moreland MD Objective Remarks General: No acute distress. Heart: Regular rate and rhythm. No murmur. Lungs: Scattered wheeze. Breathing is nonlabored. Abdomen: Soft, nontender, nondistended. Extremities: No lower extremity edema. Psych: Alert and oriented. Neuro: Normal speech. No focal deficits noted. Skin: Right groin wound with wound VAC in place. Procedures 07/26/17 cardiac catheterization 07/27/17 right iliac embolectomy, right popliteal embolectomy, right common femoral artery patch angioplasty with bovine pericardium Urinary Catheter: No Vascular Central Line Catheter: No A/P Problem List: (1) Acute coronary syndrome ICD Code: I24.9 - Acute ischemic heart disease, unspecified (2) Non-STEMI (non-ST elevated myocardial infarction) ICD Code: I21.4 - Non-ST elevation (NSTEMI) myocardial infarction Status: Acute (3) Hypoxia ICD Code: R09.02 - Hypoxemia (4) Lower limb ischemia ICD Code: I99.8 - Other disorder of circulatory system Assessment and Plan 1. Acute coronary syndrome, non-ST elevation [place]: Appreciate cardiology recommendations. Troponin elevated. Status post cardiac catheterization. Continue heparin drip. Continue aspirin, statin, beta-vee. 2. Possible alcohol withdrawal: CINE protocol. 3. COPD: Continue duo nebs, supplemental oxygen. Continue Tessalon Perles for cough. 4. Right lower extremity ischemia: Status post embolectomy by vascular surgery. Cleared for discharge by vascular surgery. Start Eliquis at discharge. 5. DVT prophylaxis: Heparin drip. Discussed with vascular surgery [employer] [employer]. Discharge Planning Possible discharge home tomorrow. Patient has been cleared for discharge by vascular surgery. Will need Eliquis 5 mg twice daily at discharge. Continue heparin drip until discharge. Jamir Crespo MD July 28, 2017 09:43
--- NOTE | 2017-07-28 09:58 | PD.VS.PN ---
Subjective POD #: 1 Procedure(s): R iliac embolectomy R popliteal embolectomy R INSPECTOR FIBROUS WALLBOARD patch angioplasty Subjective/Hospital Course 67/F S/P R iliac/R popliteal embolectomy POD 1 doing well LE warm with motor intact Palpable R distal pulse present Prevena wound vac to R groin intact w/o hematoma or swelling Objective Vitals/I&O Date Time Temp Pulse Resp B/P (MAP) Pulse Ox O2 Delivery O2 Flow Rate FiO2 07/28/17 07:25 98 Nasal Cannula 2.00 07/28/17 06:00 63 07/28/17 05:00 70 07/28/17 04:00 82 07/28/17 03:56 18 07/28/17 03:00 74 07/28/17 03:00 97.9 74 18 124/60 (81) 97 07/28/17 02:00 70 07/28/17 01:00 68 07/28/17 00:29 18 07/28/17 00:29 18 07/28/17 00:00 72 07/27/17 23:00 75 07/27/17 23:00 97.9 75 18 128/63 (84) 98 07/27/17 22:00 74 07/27/17 21:33 18 07/27/17 21:00 76 07/27/17 20:50 Nasal Cannula 3.00 07/27/17 20:00 80 07/27/17 19:00 72 07/27/17 19:00 98.5 72 18 117/57 (77) 97 07/27/17 18:00 80 07/27/17 17:00 72 07/27/17 16:00 78 07/27/17 15:00 69 07/27/17 15:00 98.3 79 20 114/57 (76) 96 07/27/17 14:00 69 07/27/17 13:36 97 Nasal Cannula 2.00 07/27/17 13:00 61 07/27/17 12:00 71 07/27/17 11:00 97.9 61 19 109/55 (73) 98 07/27/17 11:00 55 07/27/17 10:00 65 07/28/17 07/28/17 07/28/17 07:00 15:00 23:00 Intake Total 240 ml Output Total 495 ml Balance -255 ml Exam: GENERAL: A&OX3,NAD, GCS 15 SKIN: LE Warm and dry w/ motor intact CARDIOVASCULAR: + S1,S2 RESPIRATORY: BS CTA GASTROINTESTINAL: Abdomen S/NT MUSCULOSKELETAL: No cyanosis, or edema. Pulses: Palpable R/L PT Incisions: RIGHT groin with Prevena wound vac intact No hematoma or swelling noted Laboratory Laboratory Tests Test 07/27/17 12:25 07/27/17 13:15 07/27/17 19:33 07/28/17 01:34 Activated Partial Thromboplast Time 32.1 25.8 44.6 60.9 White Blood Count 8.6 Red Blood Count 3.74 Hemoglobin 11.8 Hematocrit 35.2 Mean Corpuscular Volume 94.0 Mean Corpuscular Hemoglobin 31.5 Mean Corpuscular Hemoglobin Concent 33.5 Red Cell Distribution Width 13.9 Platelet Count 191 Mean Platelet Volume 9.1 Neutrophils (%) (Auto) 65.5 Lymphocytes (%) (Auto) 24.0 Monocytes (%) (Auto) 8.1 Eosinophils (%) (Auto) 1.9 Basophils (%) (Auto) 0.5 Neutrophils # (Auto) 5.6 Lymphocytes # (Auto) 2.1 Monocytes # (Auto) 0.7 Eosinophils # (Auto) 0.2 Basophils # (Auto) 0.0 CBC Comment DIFF FINAL Differential Comment Blood Urea Nitrogen 12 Creatinine 0.56 Random Glucose 101 Calcium Level 8.4 Sodium Level 139 Potassium Level 3.9 Chloride Level 104 Carbon Dioxide Level 28.6 Anion Gap 6 Estimat Glomerular Filtration Rate 107 Date/Time Source Procedure Growth Status 07/25/17 12:40 Nasal Washing Influenza Types A,B Antigen (PARISH) - Final NEGATIVE FOR FLU A AND B ANTIGEN.... Complete 07/25/17 17:00 Urine Clean Catch Urine Culture - Final 50-100,000 CFU/ML MIXED HEATHER... Complete Assessment and Plan Assessment: (1) Lower limb ischemia Plan Acute R LE limb ischemia secondary to INSPECTOR FIBROUS WALLBOARD access from [facility] Pt S/P R iliac/R popliteal embolectomy POD 1 doing well LE warm with motor intact Palpable R distal pulse present Prevena wound vac to R groin intact w/o hematoma or swelling Plan Ok to increase activity D/C planning Recommend continued anticoagulation at D/C (Apixaban 5mg BID for 3M) Keep wound vac to right groin- Will remove on Tuesday08/03/17 in our out pt clinic Pt made aware of plan Discussed w/ Dr. hCerie Veras [facility] [phone] Discharge Planning 1-2 days Brenda Veras July 28, 2017 09:58
--- NOTE | 2017-07-28 19:25 | PD.CARD.PN ---
Subjective Subjective Remarks No CP, mild SOB, tired Objective Medications Current Medications Medications (Trade) Dose Ordered Sig/Regina Route Start Time Stop Time Status Last Admin (NS Flush) 2 ml BID IV FLUSH 07/25/17 21:00 07/28/17 08:55 (NS Flush) 2 ml UNSCH PRN IV FLUSH 07/25/17 15:45 (Morphine Inj) 2 mg Q30M PRN IV PUSH 07/25/17 15:45 07/28/17 15:25 (Tylenol) 650 mg Q6H PRN PO 07/25/17 15:45 07/27/17 23:29 (Colace) 100 mg BID PRN PO 07/25/17 15:45 (Xanax) 0.25 mg Q8H PRN PO 07/25/17 15:45 07/26/17 08:40 (Zofran Inj) 4 mg Q6H PRN IV PUSH 07/25/17 15:45 07/26/17 08:38 (Lopressor) 12.5 mg BID PO 07/25/17 21:00 07/28/17 08:55 (Lipitor) 10 mg HS PO 07/25/17 21:00 07/27/17 20:33 (Duoneb Neb) 1 ampule Q6HR WHILE AWAKE NEB NEB 07/25/17 20:00 07/28/17 13:34 (Romazicon Inj) 0.2 mg Q1M PRN IV PUSH 07/26/17 09:00 (Ativan) 1 mg Q4H PRN PO 07/26/17 09:00 (Ativan Inj) 1 mg Q4H PRN IV PUSH 07/26/17 09:00 (Ativan) 2 mg Q2H PRN PO 07/26/17 09:00 (Ativan Inj) 2 mg Q2H PRN IV PUSH 07/26/17 09:00 (Ativan Inj) 2 mg Q1H PRN IV PUSH 07/26/17 09:00 (Ativan Inj) 2 mg Q15M PRN IV PUSH 07/26/17 09:00 (Tessalon) 100 mg TID PRN PO 07/26/17 09:00 07/26/17 10:50 (Albuterol Neb) 2.5 mg Q2HR NEB PRN NEB 07/26/17 09:00 Lactated Ringer's 1,000 ml @ 30 mls/hr Q24H PRN IV 07/27/17 03:45 07/30/17 03:44 Sodium Chloride 500 ml @ 30 mls/hr [id number] PRN IV 07/27/17 03:45 07/30/17 03:44 (Betadine 5% Antisepsis Kit) 1 applic PRACTICAL NURSING TEACHER PRN EACH NARE 07/27/17 03:45 07/30/17 03:44 (Chlorhexidine 2% Cloth) 3 pack PRACTICAL NURSING TEACHER PRN TOPICAL 07/27/17 03:45 07/30/17 03:44 Lactated Ringer's 1,000 ml @ 30 mls/hr Q24H PRN IV 07/27/17 04:00 07/30/17 03:59 Sodium Chloride 500 ml @ 30 mls/hr [id number] PRN IV 07/27/17 04:00 07/30/17 03:59 (Betadine 5% Antisepsis Kit) 1 applic PRACTICAL NURSING TEACHER PRN EACH NARE 07/27/17 04:00 07/30/17 03:59 (Chlorhexidine 2% Cloth) 3 pack PRACTICAL NURSING TEACHER PRN TOPICAL 07/27/17 04:00 07/30/17 03:59 Heparin Sodium/ Dextrose 250 ml @ 8 mls/hr TITRATE PRN IV 07/27/17 10:00 07/27/17 13:52 (Aspirin) 325 mg DAILY PO 07/27/17 09:00 07/28/17 08:55 (Roxicodone) 5 mg Q4H PRN PO 07/27/17 06:45 07/27/17 23:29 (Dilaudid) 2 mg Q4H PRN PO 07/27/17 06:45 07/28/17 09:07 Vital Signs / I&O Vital Signs Date Time Temp Pulse Resp B/P (MAP) Pulse Ox O2 Delivery O2 Flow Rate FiO2 07/28/17 18:00 94 07/28/17 17:00 94 07/28/17 16:00 74 07/28/17 15:00 97.9 78 20 147/67 (93) 98 07/28/17 15:00 70 07/28/17 14:00 68 07/28/17 13:00 90 07/28/17 12:00 102 07/28/17 11:00 96 07/28/17 11:00 97.9 65 17 112/56 (74) 99 07/28/17 10:21 17 07/28/17 10:07 17 07/28/17 10:00 96 07/28/17 09:00 98 07/28/17 08:00 102 07/28/17 07:25 98 Nasal Cannula 2.00 07/28/17 07:00 98.0 96 20 143/68 (93) 100 07/28/17 07:00 104 07/28/17 06:00 63 07/28/17 05:00 70 07/28/17 04:00 82 07/28/17 03:00 74 07/28/17 03:00 97.9 74 18 124/60 (81) 97 07/28/17 02:00 70 07/28/17 01:00 68 07/28/17 00:29 18 07/28/17 00:29 18 07/28/17 00:00 72 07/27/17 23:00 75 07/27/17 23:00 97.9 75 18 128/63 (84) 98 07/27/17 22:00 74 07/27/17 21:00 76 07/27/17 20:50 Nasal Cannula 3.00 07/27/17 20:00 80 I/O 07/27/17 07/27/17 07/27/17 07/28/17 07/28/17 07/28/17 07:00 15:00 23:00 07:00 15:00 23:00 Intake Total 1100 ml 510 ml 240 ml 620 ml Output Total 1200 ml 400 ml 495 ml 700 ml Balance -100 ml 110 ml -255 ml -80 ml Intake Oral 100 ml 480 ml 240 ml 620 ml IV Total 30 ml Other 1000 ml Output Urine Total 1000 ml 400 ml 495 ml 700 ml Estimated Blood Loss 200 ml Bladder Scan Volume Amount 375 ml # Bowel Movements 0 Physical Exam GENERAL: In NAD. SKIN: Warm and dry. HEAD: Normocephalic. EYES: No scleral icterus. No injection or drainage. NECK: Supple, trachea midline. No JVD or lymphadenopathy. CARDIOVASCULAR: Regular rate and rhythm without murmurs, gallops, or rubs. RESPIRATORY: Breath sounds equal bilaterally. No accessory muscle use. GASTROINTESTINAL: Abdomen soft, non-tender, nondistended. MUSCULOSKELETAL: No cyanosis, or edema. Laboratory Laboratory Tests Test 07/27/17 19:33 07/28/17 01:34 Activated Partial Thromboplast Time 44.6 SEC 60.9 SEC White Blood Count 8.6 TH/MM3 Red Blood Count 3.74 MIL/MM3 Hemoglobin 11.8 GM/DL Hematocrit 35.2 % Mean Corpuscular Volume 94.0 FL Mean Corpuscular Hemoglobin 31.5 PG Mean Corpuscular Hemoglobin Concent 33.5 % Red Cell Distribution Width 13.9 % Platelet Count 191 TH/MM3 Mean Platelet Volume 9.1 FL Neutrophils (%) (Auto) 65.5 % Lymphocytes (%) (Auto) 24.0 % Monocytes (%) (Auto) 8.1 % Eosinophils (%) (Auto) 1.9 % Basophils (%) (Auto) 0.5 % Neutrophils # (Auto) 5.6 TH/MM3 Lymphocytes # (Auto) 2.1 TH/MM3 Monocytes # (Auto) 0.7 TH/MM3 Eosinophils # (Auto) 0.2 TH/MM3 Basophils # (Auto) 0.0 TH/MM3 CBC Comment DIFF FINAL Differential Comment Blood Urea Nitrogen 12 MG/DL Creatinine 0.56 MG/DL Random Glucose 101 MG/DL Calcium Level 8.4 MG/DL Sodium Level 139 MEQ/L Potassium Level 3.9 MEQ/L Chloride Level 104 MEQ/L Carbon Dioxide Level 28.6 MEQ/L Anion Gap 6 MEQ/L Estimat Glomerular Filtration Rate 107 ML/MIN Assessment and Plan Problem List: (1) Elevated troponin ICD Codes: R74.8 - Abnormal levels of other serum enzymes (2) CAD (coronary artery disease) ICD Codes: I25.10 - Atherosclerotic heart disease of [place] coronary artery without angina pectoris (3) Lower limb ischemia ICD Codes: I99.8 - Other disorder of circulatory system (4) Acute respiratory failure with hypoxia ICD Codes: J96.01 - Acute respiratory failure with hypoxia Status: Acute Assessment and Plan Cath with mild CAD only. She developed cold leg and underwent embolectomy by Dr. Armstrong; now stable. Continue IV heparin, switch to Eliquis at discharge. Continue risk factor modification. Increase activity. Anticipate discharge home soon. Will schedule card f/u. Clifford Irwin MD July 28, 2017 19:25
[2017-07-28] MEDS: HEPARIN-D5W 25,000 U/250 ML 250 ML IV PRN (20:15)
[2017-07-28] MEDS: ATORVASTATIN 10 MG TAB PO SCH (21:11)
[2017-07-29] VITALS (19 sets, daily range): BP systolic 108–187; BP diastolic 57–90; PULSE 70–102; RESP 14–22; TEMP 97.8–99.1; O2SAT 90–98
[2017-07-29] MEDS: HYDROmorphone HCL 2 MG TAB PO PRN ×3 (07:35→20:12)
--- NOTE | 2017-07-29 07:38 | PD.VS.PN ---
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 pavel po still on hep gtt Objective Vitals/I&O Date Time Temp Pulse Resp B/P (MAP) Pulse Ox O2 Delivery O2 Flow Rate FiO2 07/29/17 05:00 87 07/29/17 03:00 81 07/29/17 03:00 99.1 87 18 165/76 (105) 96 07/29/17 00:41 16 07/28/17 23:00 83 07/28/17 23:00 98.8 84 16 147/77 (100) 97 07/28/17 21:48 96 Nasal Cannula 2.00 07/28/17 19:00 99.8 88 18 149/71 (97) 96 07/28/17 19:00 94 07/28/17 18:00 94 07/28/17 17:00 94 07/28/17 16:00 74 07/28/17 15:00 97.9 78 20 147/67 (93) 98 07/28/17 15:00 70 07/28/17 14:00 68 07/28/17 13:00 90 07/28/17 12:00 102 07/28/17 11:00 96 07/28/17 11:00 97.9 65 17 112/56 (74) 99 07/28/17 10:21 17 07/28/17 10:00 96 07/28/17 09:00 98 07/28/17 08:00 102 07/29/17 07/29/17 07/29/17 07:00 15:00 23:00 Intake Total 240 ml Output Total 850 ml Balance -610 ml Exam: mild distress from pain R groin soft foot warm palpable PT Laboratory Laboratory Tests Test 07/29/17 04:11 Activated Partial Thromboplast Time 58.7 Date/Time Source Procedure Growth Status 07/25/17 12:40 Nasal Washing Influenza Types A,B Antigen (PAIRSH) - Final NEGATIVE FOR FLU A AND B ANTIGEN.... Complete 07/25/17 17:00 Urine Clean Catch Urine Culture - Final 50-100,000 CFU/ML MIXED HEATHER... Complete Assessment and Plan Assessment: (1) Lower limb ischemia Plan Acute R LE limb ischemia secondary to INTERLOCKING AND SIGNAL MECHANIC access from [facility] POD#2 s/p R groin reconstruction and embolectomy Palpable PT and foot warm Suspect pain related to incision and reperfusion; no clinical signs of compartment syndrome 1. OOB/PT 2. transition to oral anticoagulation for 3m 3. Prevena off in clinic next week 4. Ok to d/c anytime from vascular surgery standpoint Discharge Planning anytime from vascular surgery standpoint Pedrito Armstrong MD July 29, 2017 07:38
[2017-07-29] MEDS: ASPIRIN 325 MG TAB PO SCH (07:48)
[2017-07-29] MEDS: METOPROLOL TARTRATE 25 MG TAB PO SCH ×2 (07:49→20:12)
[2017-07-29] MEDS: SODIUM CHLORIDE 0.9% FLUSH 10 ML FLUSH IV FLUSH SCH ×2 (07:50→20:13)
[2017-07-29] MEDS: ONDANSETRON HCL 4 MG/2 ML VIAL IV PUSH PRN (07:54)
--- NOTE | 2017-07-29 08:09 | HHI.PR ---
Subjective Remarks Follow up CAD, limb ischemia. Patient is having significant pain in the right groin at the surgical site. Just received Dilaudid. Now with nausea/vomiting. Objective Vitals Vital Signs Date Time Temp Pulse Resp B/P (MAP) Pulse Ox O2 Delivery O2 Flow Rate FiO2 07/29/17 05:00 87 07/29/17 03:00 81 07/29/17 03:00 99.1 87 18 165/76 (105) 96 07/29/17 00:41 16 07/28/17 23:00 83 07/28/17 23:00 98.8 84 16 147/77 (100) 97 07/28/17 21:48 96 Nasal Cannula 2.00 07/28/17 19:00 99.8 88 18 149/71 (97) 96 07/28/17 19:00 94 07/28/17 18:00 94 07/28/17 17:00 94 07/28/17 16:00 74 07/28/17 15:00 97.9 78 20 147/67 (93) 98 07/28/17 15:00 70 07/28/17 14:00 68 07/28/17 13:00 90 07/28/17 12:00 102 07/28/17 11:00 96 07/28/17 11:00 97.9 65 17 112/56 (74) 99 07/28/17 10:21 17 07/28/17 10:00 96 07/28/17 09:00 98 I/O 07/28/17 07/28/17 07/28/17 07/29/17 07/29/17 07/29/17 07:00 15:00 23:00 07:00 15:00 23:00 Intake Total 240 ml 620 ml 240 ml Output Total 495 ml 700 ml 850 ml Balance -255 ml -80 ml -610 ml Intake Oral 240 ml 620 ml 240 ml Output Urine Total 495 ml 700 ml 850 ml Bladder Scan Volume Amount 375 ml Result Diagram: 07/28/17 0134 07/28/174 Imaging Last Impressions Aorta w/Runoff CTA 07/27/17 0000 Signed Impressions: Service Date/Time: Thursday, July 27, 2017 01:19 - CONCLUSION: 1. Abrupt occlusion of the proximal right external iliac with collateral reconstitution of the right common femoral. 2. On the right, the profunda, SFA and above-the- knee articular patent with abrupt occlusion of the juxta-articular portion of the popliteal concern for an embolic event. Collateral reconstitution of the trifurcation vessels. All 3 are patent into the ankle and foot. 3. Inflow and outflow is adequate on the left. 4. Mesenteric and renal vessels are patent. Johnathon Luis MD Chest X-Ray 07/25/17 1209 Signed Impressions: Service Date/Time: Tuesday, July 25, 2017 12:13 - CONCLUSION: No acute disease. Cornell Moreland MD Objective Remarks General: No acute distress. Appears uncomfortable. Heart: Regular rate and rhythm. No murmur. Lungs: Scattered wheeze. Breathing is nonlabored. Abdomen: Soft, nontender, nondistended. Extremities: No lower extremity edema. Psych: Alert and oriented. Neuro: Normal speech. No focal deficits noted. Skin: Right groin wound with wound VAC in place. Procedures 07/26/17 cardiac catheterization 07/27/17 right iliac embolectomy, right popliteal embolectomy, right common femoral artery patch angioplasty with bovine pericardium Urinary Catheter: Yes Assessment to: Continue Merritt insert reason: Obstruction/Retention Vascular Central Line Catheter: No A/P Problem List: (1) Acute coronary syndrome ICD Code: I24.9 - Acute ischemic heart disease, unspecified (2) Non-STEMI (non-ST elevated myocardial infarction) ICD Code: I21.4 - Non-ST elevation (NSTEMI) myocardial infarction Status: Acute (3) Hypoxia ICD Code: R09.02 - Hypoxemia (4) Lower limb ischemia ICD Code: I99.8 - Other disorder of circulatory system Assessment and Plan 1. Acute coronary syndrome, non-ST elevation ME: Appreciate cardiology recommendations. Troponin elevated. Status post cardiac catheterization. Continue heparin drip. Continue aspirin, statin, beta-vee. 2. Possible alcohol withdrawal: CIWA protocol. 3. COPD: Continue duo nebs, supplemental oxygen. Continue Tessalon Perles for cough. 4. Right lower extremity ischemia: Status post embolectomy by vascular surgery. Cleared for discharge by vascular surgery. Start Eliquis at discharge. Continue pain control. 5. DVT prophylaxis: Heparin drip. 6. Nausea/vomiting: Possibly due to pain meds. Continue Zofran. 7. Constipation: Bowel regimen. Discharge Planning Discharge home when medically stable. Patient has been cleared for discharge by vascular surgery. Will need Eliquis 5 mg twice daily at discharge. Continue heparin drip until discharge. Jamir Crespo MD July 29, 2017 08:09
[2017-07-29] MEDS ORDERED: LACTULOSE SYRUP 20 GM/30 ML CUP PO PRN (08:15)
[2017-07-29] MEDS ORDERED: SENNOSIDES 8.6 MG TAB PO PRN (08:15)
[2017-07-29] MEDS ORDERED: BISACODYL 10 MG SUPP RECTAL PRN (08:15)
[2017-07-29] MEDS ORDERED: MAGNESIUM HYDROXIDE SUSP 30 ML CUP PO PRN (08:15)
[2017-07-29] MEDS ORDERED: TAMSULOSIN HCL 0.4 MG CAP PO SCH (09:00)
[2017-07-29] MEDS: DOCUSATE SODIUM 50 MG/SENNA 8.6 MG TAB PO SCH ×2 (09:26→20:11)
[2017-07-29] MEDS: MORPHINE SULFATE 4 MG/ML INJ IV PUSH PRN (09:26)
[2017-07-29] MEDS: RESP: ALBUTEROL 2.5 MG/IPRATROPIUM 0.5 MG NEB (SCH) NEB ×2 (10:16→14:31)
[2017-07-29] MEDS ORDERED: WALKER WHEELS/F1 MIS (11:07)
--- NOTE | 2017-07-29 14:51 | PD.CARD.PN ---
Subjective Subjective Remarks No CP, mild SOB, c/o groin pain Objective Medications Current Medications Medications (Trade) Dose Ordered Sig/Regina Route Start Time Stop Time Status Last Admin (NS Flush) 2 ml BID IV FLUSH 07/25/17 21:00 07/28/17 21:10 (NS Flush) 2 ml UNSCH PRN IV FLUSH 07/25/17 15:45 (Tylenol) 650 mg Q6H PRN PO 07/25/17 15:45 07/27/17 23:29 (Xanax) 0.25 mg Q8H PRN PO 07/25/17 15:45 07/26/17 08:40 (Zofran Inj) 4 mg Q6H PRN IV PUSH 07/25/17 15:45 07/29/17 07:54 (Lopressor) 12.5 mg BID PO 07/25/17 21:00 07/29/17 07:49 (Lipitor) 10 mg HS PO 07/25/17 21:00 07/28/17 21:11 (Duoneb Neb) 1 ampule Q6HR WHILE AWAKE NEB NEB 07/25/17 20:00 07/29/17 14:31 (Romazicon Inj) 0.2 mg Q1M PRN IV PUSH 07/26/17 09:00 (Ativan) 1 mg Q4H PRN PO 07/26/17 09:00 (Ativan Inj) 1 mg Q4H PRN IV PUSH 07/26/17 09:00 (Ativan) 2 mg Q2H PRN PO 07/26/17 09:00 (Ativan Inj) 2 mg Q2H PRN IV PUSH 07/26/17 09:00 (Ativan Inj) 2 mg Q1H PRN IV PUSH 07/26/17 09:00 (Ativan Inj) 2 mg Q15M PRN IV PUSH 07/26/17 09:00 (Tessalon) 100 mg TID PRN PO 07/26/17 09:00 07/26/17 10:50 (Albuterol Neb) 2.5 mg Q2HR NEB PRN NEB 07/26/17 09:00 Lactated Ringer's 1,000 ml @ 30 mls/hr Q24H PRN IV 07/27/17 03:45 07/30/17 03:44 Sodium Chloride 500 ml @ 30 mls/hr [id number] PRN IV 07/27/17 03:45 07/30/17 03:44 (Betadine 5% Antisepsis Kit) 1 applic INSTRUMENT MAKER PRN EACH NARE 07/27/17 03:45 07/30/17 03:44 (Chlorhexidine 2% Cloth) 3 pack INSTRUMENT MAKER PRN TOPICAL 07/27/17 03:45 07/30/17 03:44 Lactated Ringer's 1,000 ml @ 30 mls/hr Q24H PRN IV 07/27/17 04:00 07/30/17 03:59 Sodium Chloride 500 ml @ 30 mls/hr [id number] PRN IV 07/27/17 04:00 07/30/17 03:59 (Betadine 5% Antisepsis Kit) 1 applic INSTRUMENT MAKER PRN EACH NARE 07/27/17 04:00 07/30/17 03:59 (Chlorhexidine 2% Cloth) 3 pack INSTRUMENT MAKER PRN TOPICAL 07/27/17 04:00 07/30/17 03:59 Heparin Sodium/ Dextrose 250 ml @ 8 mls/hr TITRATE PRN IV 07/27/17 10:00 07/28/17 20:15 (Aspirin) 325 mg DAILY PO 07/27/17 09:00 07/29/17 07:48 (Roxicodone) 5 mg Q4H PRN PO 07/27/17 06:45 07/27/17 23:29 (Dilaudid) 2 mg Q4H PRN PO 07/27/17 06:45 07/29/17 13:39 (Carine-Colace) 1 tab BID PO 07/29/17 09:00 07/29/17 09:26 (Milk Of Magnesia Liq) 30 ml Q12H PRN PO 07/29/17 08:15 (Senokot) 17.2 mg Q12H PRN PO 07/29/17 08:15 (Dulcolax Supp) 10 mg DAILY PRN RECTAL 07/29/17 08:15 (Lactulose Liq) 30 ml DAILY PRN PO 07/29/17 08:15 (Morphine Inj) 1 mg Q4HR PRN IV PUSH 07/29/17 09:15 07/29/17 09:26 Vital Signs / I&O Vital Signs Date Time Temp Pulse Resp B/P (MAP) Pulse Ox O2 Delivery O2 Flow Rate FiO2 07/29/17 14:00 86 07/29/17 13:00 87 07/29/17 12:00 80 07/29/17 11:00 98.0 78 20 145/64 (91) 98 07/29/17 11:00 78 07/29/17 10:35 95 21 07/29/17 10:19 97 Nasal Cannula 2.00 07/29/17 10:00 70 07/29/17 09:00 71 07/29/17 08:00 72 07/29/17 08:00 97.8 90 22 187/90 (122) 95 07/29/17 07:00 90 07/29/17 05:00 87 07/29/17 03:00 81 07/29/17 03:00 99.1 87 18 165/76 (105) 96 07/29/17 00:41 16 07/28/17 23:00 83 07/28/17 23:00 98.8 84 16 147/77 (100) 97 07/28/17 21:48 96 Nasal Cannula 2.00 07/28/17 19:00 99.8 88 18 149/71 (97) 96 07/28/17 19:00 94 07/28/17 18:00 94 07/28/17 17:00 94 07/28/17 16:00 74 07/28/17 15:00 97.9 78 20 147/67 (93) 98 07/28/17 15:00 70 I/O 07/28/17 07/28/17 07/28/17 07/29/17 07/29/17 07/29/17 07:00 15:00 23:00 07:00 15:00 23:00 Intake Total 240 ml 620 ml 240 ml Output Total 495 ml 700 ml 850 ml Balance -255 ml -80 ml -610 ml Intake Oral 240 ml 620 ml 240 ml Output Urine Total 495 ml 700 ml 850 ml Bladder Scan Volume Amount 375 ml Physical Exam GENERAL: In NAD. SKIN: Warm and dry. HEAD: Normocephalic. EYES: No scleral icterus. No injection or drainage. NECK: Supple, trachea midline. No JVD or lymphadenopathy. CARDIOVASCULAR: Regular rate and rhythm without murmurs, gallops, or rubs. RESPIRATORY: Breath sounds equal bilaterally. No accessory muscle use. GASTROINTESTINAL: Abdomen soft, non-tender, nondistended. MUSCULOSKELETAL: No cyanosis, or edema. Laboratory Laboratory Tests Test 07/29/17 04:11 Activated Partial Thromboplast Time 58.7 SEC Assessment and Plan Problem List: (1) Elevated troponin ICD Codes: R74.8 - Abnormal levels of other serum enzymes (2) CAD (coronary artery disease) ICD Codes: I25.10 - Atherosclerotic heart disease of [place] coronary artery without angina pectoris (3) Lower limb ischemia ICD Codes: I99.8 - Other disorder of circulatory system (4) Acute respiratory failure with hypoxia ICD Codes: J96.01 - Acute respiratory failure with hypoxia Status: Acute (5) COPD (chronic obstructive pulmonary disease) ICD Codes: J44.9 - Chronic obstructive pulmonary disease, unspecified Assessment and Plan No new cardiac issues. Cath with mild CAD only. She developed cold leg and underwent embolectomy by Dr. Armstrong; now stable. Continue IV heparin, switch to Eliquis later. Continue tx for COPD exacerbation. Continue risk factor modification. Increase activity, PT. Will schedule card f/u after discharge. Clifford Irwin MD July 29, 2017 14:51
[2017-07-29] MEDS: ATORVASTATIN 10 MG TAB PO SCH (20:11)
[2017-07-30] VITALS (20 sets, daily range): BP systolic 114–155; BP diastolic 58–66; PULSE 73–102; RESP 16–18; TEMP 97.2–99; O2SAT 93–97
[2017-07-30] MEDS: HYDROmorphone HCL 2 MG TAB PO PRN ×2 (04:22→20:08)
[2017-07-30] MEDS: HEPARIN-D5W 25,000 U/250 ML 250 ML IV PRN (04:25)
[2017-07-30 04:29] LABS: HEMATOCRIT 35.9 % (35.0-46.0); HEMOGLOBIN 12.1 GM/DL (11.6-15.3); MEAN CELL VOLUME 92.7 FL (80.0-100.0); MEAN CORPUSCULAR HEMOGLOBIN 31.1 PG (27.0-34.0); MEAN CORPUSCULAR HGB CONC 33.6 % (32.0-36.0); MEAN PLATELET VOLUME 9.1 FL (7.0-11.0); PLATELET COUNT 189 TH/MM3 (150-450); RED BLOOD COUNT 3.88 MIL/MM3 (4.00-5.30); RED CELL DISTRIBUTION WIDTH 13.8 % (11.6-17.2); WHITE BLOOD COUNT 6.2 TH/MM3 (4.0-11.0)
[2017-07-30] MEDS: MORPHINE SULFATE 4 MG/ML INJ IV PUSH PRN ×2 (07:28→09:16)
--- NOTE | 2017-07-30 08:03 | PD.VS.PN ---
Subjective Subjective/Hospital Course coughed this morning and developed hematoma at inferior aspect of wound RN team applied pressure and much softer. foot ok Objective Vitals/I&O Date Time Temp Pulse Resp B/P (MAP) Pulse Ox O2 Delivery O2 Flow Rate FiO2 07/30/17 03:00 99.0 97 16 121/58 (79) 97 07/30/17 03:00 102 07/29/17 23:00 99.1 95 18 108/57 (74) 95 07/29/17 23:00 102 07/29/17 21:43 90 21 07/29/17 19:00 89 07/29/17 19:00 98.8 92 16 129/63 (85) 95 07/29/17 18:00 90 07/29/17 17:00 88 07/29/17 16:00 76 07/29/17 15:00 98.1 88 14 134/70 (91) 96 07/29/17 15:00 99 07/29/17 14:00 86 07/29/17 13:00 87 07/29/17 12:00 80 07/29/17 11:00 98.0 78 20 145/64 (91) 98 07/29/17 11:00 78 07/29/17 10:35 95 21 07/29/17 10:19 97 Nasal Cannula 2.00 07/29/17 10:00 70 07/29/17 09:00 71 07/30/17 07/30/17 07/30/17 07:00 15:00 23:00 Intake Total 240 ml Output Total 350 ml Balance -110 ml Physical Exam R groin with soft, diffuse hematoma at caudal aspect of wound incision c/d/i palpable PT Laboratory Laboratory Tests Test 07/30/17 04:09 07/30/17 04:10 Activated Partial Thromboplast Time 54.1 White Blood Count 6.2 Red Blood Count 3.88 Hemoglobin 12.1 Hematocrit 35.9 Mean Corpuscular Volume 92.7 Mean Corpuscular Hemoglobin 31.1 Mean Corpuscular Hemoglobin Concent 33.6 Red Cell Distribution Width 13.8 Platelet Count 189 Mean Platelet Volume 9.1 Date/Time Source Procedure Growth Status 07/25/17 12:40 Nasal Washing Influenza Types A,B Antigen (PARISH) - Final NEGATIVE FOR FLU A AND B ANTIGEN.... Complete 07/25/17 17:00 Urine Clean Catch Urine Culture - Final 50-100,000 CFU/ML MIXED HEATHER... 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 NPO 2. d/c hep gtt 3. recheck CBC at 1000 4. If stable, will resume diet 5. ASA only moving forward (no systemic anticoagulation) Discharge Planning anytime from vascular surgery standpoint Pedrito Armstrong MD July 30, 2017 08:03
[2017-07-30] MEDS: ASPIRIN 325 MG TAB PO SCH (09:16)
[2017-07-30] MEDS: METOPROLOL TARTRATE 25 MG TAB PO SCH ×2 (09:16→20:09)
[2017-07-30] MEDS: DOCUSATE SODIUM 50 MG/SENNA 8.6 MG TAB PO SCH ×2 (09:16→20:13)
[2017-07-30] MEDS: SODIUM CHLORIDE 0.9% FLUSH 10 ML FLUSH IV FLUSH SCH ×2 (09:18→20:08)
--- NOTE | 2017-07-30 09:45 | HHI.PR ---
Subjective Remarks Follow up limb ischemia, groin pain. Patient developed severe pain in the right groin after coughing this morning. She was evaluated by vascular surgery and found to have a hematoma. Pressure was applied. Pain is better at this time, but she still reports occasional sharp pains radiating from the right groin to the right knee. Nausea/vomiting improved. Objective Vitals Vital Signs Date Time Temp Pulse Resp B/P (MAP) Pulse Ox O2 Delivery O2 Flow Rate FiO2 07/30/17 03:00 99.0 97 16 121/58 (79) 97 07/30/17 03:00 102 07/29/17 23:00 99.1 95 18 108/57 (74) 95 07/29/17 23:00 102 07/29/17 21:43 90 21 07/29/17 19:00 89 07/29/17 19:00 98.8 92 16 129/63 (85) 95 07/29/17 18:00 90 07/29/17 17:00 88 07/29/17 16:00 76 07/29/17 15:00 98.1 88 14 134/70 (91) 96 07/29/17 15:00 99 07/29/17 14:00 86 07/29/17 13:00 87 07/29/17 12:00 80 07/29/17 11:00 98.0 78 20 145/64 (91) 98 07/29/17 11:00 78 07/29/17 10:35 95 21 07/29/17 10:19 97 Nasal Cannula 2.00 07/29/17 10:00 70 I/O 07/29/17 07/29/17 07/29/17 07/30/17 07/30/17 07/30/17 07:00 15:00 23:00 07:00 15:00 23:00 Intake Total 240 ml 600 ml 240 ml Output Total 850 ml 1000 ml 350 ml Balance -610 ml -400 ml -110 ml Intake Oral 240 ml 600 ml 240 ml Output Urine Total 850 ml 1000 ml 350 ml # Bowel Movements 0 Result Diagram: 07/30/17 0410 07/28/17 0134 Imaging Last Impressions Aorta w/Runoff CTA 07/27/17 0000 Signed Impressions: Service Date/Time: Thursday, July 27, 2017 01:19 - CONCLUSION: 1. Abrupt occlusion of the proximal right external iliac with collateral reconstitution of the right common femoral. 2. On the right, the profunda, SFA and above-the- knee articular patent with abrupt occlusion of the juxta-articular portion of the popliteal concern for an embolic event. Collateral reconstitution of the trifurcation vessels. All 3 are patent into the ankle and foot. 3. Inflow and outflow is adequate on the left. 4. Mesenteric and renal vessels are patent. Johnathon Luis MD Chest X-Ray 07/25/17 1209 Signed Impressions: Service Date/Time: Tuesday, July 25, 2017 12:13 - CONCLUSION: No acute disease. Cornell Moreland MD Objective Remarks General: No acute distress. Appears uncomfortable. Heart: Regular rate and rhythm. No murmur. Lungs: Scattered wheeze. Breathing is nonlabored. Abdomen: Soft, nontender, nondistended. Extremities: No lower extremity edema. Psych: Alert and oriented. Neuro: Normal speech. No focal deficits noted. Procedures 07/26/17 cardiac catheterization 07/27/17 right iliac embolectomy, right popliteal embolectomy, right common femoral artery patch angioplasty with bovine pericardium Urinary Catheter: Yes Assessment to: Continue Merritt insert reason: Obstruction/Retention Vascular Central Line Catheter: No A/P Problem List: (1) Acute coronary syndrome ICD Code: I24.9 - Acute ischemic heart disease, unspecified (2) Non-STEMI (non-ST elevated myocardial infarction) ICD Code: I21.4 - Non-ST elevation (NSTEMI) myocardial infarction Status: Acute (3) Hypoxia ICD Code: R09.02 - Hypoxemia (4) Lower limb ischemia ICD Code: I99.8 - Other disorder of circulatory system Assessment and Plan 1. Acute coronary syndrome, non-ST elevation [place]: Appreciate cardiology recommendations. Troponin elevated. Status post cardiac catheterization. Continue aspirin, statin, beta-vee. 2. Possible alcohol withdrawal: CIWA protocol. 3. COPD: Continue duo nebs, supplemental oxygen. Continue Tessalon Perles for cough. 4. Right lower extremity ischemia: Status post embolectomy by vascular surgery. Developed hematoma. Aspirin only per vascular surgery. Continue pain control. 5. DVT prophylaxis: Heparin drip discontinued. 6. Nausea/vomiting: Possibly due to pain meds. Continue Zofran as needed. 7. Constipation: Bowel regimen. Discharge Planning Discharge home when medically stable. Jamir Crespo MD July 30, 2017 09:44
[2017-07-30 10:53] LABS: HEMATOCRIT 34.7 % (35.0-46.0); HEMOGLOBIN 11.7 GM/DL (11.6-15.3); MEAN CELL VOLUME 91.8 FL (80.0-100.0); MEAN CORPUSCULAR HEMOGLOBIN 30.9 PG (27.0-34.0); MEAN CORPUSCULAR HGB CONC 33.7 % (32.0-36.0); MEAN PLATELET VOLUME 8.7 FL (7.0-11.0); PLATELET COUNT 220 TH/MM3 (150-450); RED BLOOD COUNT 3.78 MIL/MM3 (4.00-5.30); RED CELL DISTRIBUTION WIDTH 13.7 % (11.6-17.2)
[2017-07-30] MEDS ORDERED: SODIUM CHLOR 0.9% 1000 ML INJ 500 ML IV SCH (17:45)
[2017-07-30] MEDS: ATORVASTATIN 10 MG TAB PO SCH (20:08)
[2017-07-31] VITALS (27 sets, daily range): BP systolic 107–136; BP diastolic 57–63; PULSE 71–107; TEMP 97.9–99; O2SAT 92–97
[2017-07-31 05:26] LABS: AUTOMATED NEUTROPHIL # 5.7 TH/MM3 (1.8-7.7); BASOPHIL % 0.5 % (0.0-2.0); EOSINOPHIL # 0.4 TH/MM3 (0-0.4); HEMATOCRIT 31.3 % (35.0-46.0); HEMOGLOBIN 10.6 GM/DL (11.6-15.3); LYMPH % 16.2 % (9.0-44.0); LYMPHOCYTE # 1.4 TH/MM3 (1.0-4.8); MEAN CELL VOLUME 91.8 FL (80.0-100.0); MEAN CORPUSCULAR HGB CONC 33.8 % (32.0-36.0); MEAN PLATELET VOLUME 8.8 FL (7.0-11.0); MONOCYTE # 0.8 TH/MM3 (0-0.9); NEUT % 68.3 % (16.0-70.0); PLATELET COUNT 229 TH/MM3 (150-450); RED BLOOD COUNT 3.41 MIL/MM3 (4.00-5.30); RED CELL DISTRIBUTION WIDTH 13.6 % (11.6-17.2); WHITE BLOOD COUNT 8.4 TH/MM3 (4.0-11.0)
[2017-07-31] MEDS: DOCUSATE SODIUM 50 MG/SENNA 8.6 MG TAB PO SCH ×2 (07:54→21:00)
[2017-07-31] MEDS: HYDROmorphone HCL 2 MG TAB PO PRN ×2 (07:55→18:01)
[2017-07-31] MEDS: ASPIRIN 325 MG TAB PO SCH (07:55)
[2017-07-31] MEDS: METOPROLOL TARTRATE 25 MG TAB PO SCH ×2 (07:55→20:38)
[2017-07-31] MEDS: SODIUM CHLORIDE 0.9% FLUSH 10 ML FLUSH IV FLUSH SCH ×2 (07:58→20:38)
--- NOTE | 2017-07-31 08:42 | PD.VS.PN ---
Subjective POD #: 4 Procedure(s): R iliac embolectomy R popliteal embolectomy R SOLE DYER patch angioplasty Subjective/Hospital Course foot ok and leg slightly painful OOB and ambulating wants to go to rehab which I think is reasonable given that she lives alone Objective Vitals/I&O Date Time Temp Pulse Resp B/P (MAP) Pulse Ox O2 Delivery O2 Flow Rate FiO2 07/31/17 07:58 95 21 07/31/17 06:08 85 07/31/17 05:07 85 07/31/17 04:44 93 Room Air 07/31/17 04:43 99.0 84 136/63 (87) 97 07/31/17 04:01 88 07/31/17 03:20 80 07/31/17 02:39 86 07/31/17 01:13 81 07/31/17 00:37 82 07/30/17 23:57 93 Nasal Cannula 1.00 07/30/17 23:55 99.0 91 114/58 (76) 93 07/30/17 23:00 91 07/30/17 22:20 88 07/30/17 22:03 Nasal Cannula 2.00 07/30/17 21:47 16 07/30/17 21:11 83 07/30/17 20:00 83 07/30/17 19:00 98.8 92 155/66 (95) 96 07/30/17 19:00 92 07/30/17 19:00 96 Nasal Cannula 2.00 07/30/17 18:05 86 07/30/17 17:33 16 07/30/17 17:10 98 07/30/17 16:23 92 07/30/17 15:40 85 07/30/17 15:40 97.2 84 16 130/61 (84) 94 07/30/17 14:00 91 07/30/17 13:39 95 Nasal Cannula 2.00 07/30/17 13:00 81 07/30/17 12:00 77 07/30/17 11:00 73 07/30/17 11:00 98.8 90 16 126/59 (81) 97 07/30/17 10:00 82 07/30/17 09:00 82 07/31/17 07/31/17 07/31/17 07:00 15:00 23:00 Intake Total 480 ml 500 ml Output Total 525 ml Balance -45 ml 500 ml Exam: sitting in chair R groin soft, moderate edema incision ok palpable PT Laboratory Laboratory Tests Test 07/30/17 10:41 07/31/17 05:03 White Blood Count 9.0 8.4 Red Blood Count 3.78 3.41 Hemoglobin 11.7 10.6 Hematocrit 34.7 31.3 Mean Corpuscular Volume 91.8 91.8 Mean Corpuscular Hemoglobin 30.9 31.0 Mean Corpuscular Hemoglobin Concent 33.7 33.8 Red Cell Distribution Width 13.7 13.6 Platelet Count 220 229 Mean Platelet Volume 8.7 8.8 Neutrophils (%) (Auto) 68.3 Lymphocytes (%) (Auto) 16.2 Monocytes (%) (Auto) 10.0 Eosinophils (%) (Auto) 5.0 Basophils (%) (Auto) 0.5 Neutrophils # (Auto) 5.7 Lymphocytes # (Auto) 1.4 Monocytes # (Auto) 0.8 Eosinophils # (Auto) 0.4 Basophils # (Auto) 0.0 CBC Comment DIFF FINAL Differential Comment Activated Partial Thromboplast Time 24.3 Date/Time Source Procedure Growth Status 07/25/17 12:40 Nasal Washing Influenza Types A,B Antigen (PAR[place]) - Final NEGATIVE FOR FLU A AND B ANTIGEN.... Complete 07/25/17 17:00 Urine Clean Catch Urine Culture - Final 50-100,000 CFU/ML MIXED HEATHER... Complete Assessment and Plan Assessment: (1) Lower limb ischemia Plan Acute R LE limb ischemia secondary to SOLE DYER access from [facility] POD#4 s/p R groin reconstruction and embolectomy hematoma imrpoved Palpable PT and foot warm 1. OOB/PT 2. continue pulse checks 3. ASA only ok 4. ok with d/c to rehab tomorrow (Tuesday) Discharge Planning tomorrow (Tuesday) to rehab Pedrito Armstrong MD July 31, 2017 08:42
--- NOTE | 2017-07-31 10:06 | HHI.PR ---
Subjective Remarks Follow-up limb ischemia, leg pain. Patient is reporting pain from her right groin to her right knee. Overall she feels a little better than yesterday. Denies shortness of breath or chest pain. Objective Vitals Vital Signs Date Time Temp Pulse Resp B/P (MAP) Pulse Ox O2 Delivery O2 Flow Rate FiO2 07/31/17 09:00 77 07/31/17 08:00 73 07/31/17 07:58 95 21 07/31/17 07:00 107 07/31/17 07:00 94 Room Air 07/31/17 07:00 97.9 100 129/60 (83) 93 07/31/17 06:08 85 07/31/17 05:07 85 07/31/17 04:44 93 Room Air 07/31/17 04:43 99.0 84 136/63 (87) 97 07/31/17 04:01 88 07/31/17 03:20 80 07/31/17 02:39 86 07/31/17 01:13 81 07/31/17 00:37 82 07/30/17 23:57 93 Nasal Cannula 1.00 07/30/17 23:55 99.0 91 114/58 (76) 93 07/30/17 23:00 91 07/30/17 22:20 88 07/30/17 22:03 Nasal Cannula 2.00 07/30/17 21:47 16 07/30/17 21:11 83 07/30/17 20:00 83 07/30/17 19:00 98.8 92 155/66 (95) 96 07/30/17 19:00 92 07/30/17 19:00 96 Nasal Cannula 2.00 07/30/17 18:05 86 07/30/17 17:33 16 07/30/17 17:10 98 07/30/17 16:23 92 07/30/17 15:40 85 07/30/17 15:40 97.2 84 16 130/61 (84) 94 07/30/17 14:00 91 07/30/17 13:39 95 Nasal Cannula 2.00 07/30/17 13:00 81 07/30/17 12:00 77 07/30/17 11:00 73 07/30/17 11:00 98.8 90 16 126/59 (81) 97 I/O 07/30/17 07/30/17 07/30/17 07/31/17 07/31/17 07/31/17 07:00 15:00 23:00 07:00 15:00 23:00 Intake Total 240 ml 360 ml 480 ml 500 ml Output Total 350 ml 150 ml 525 ml Balance -110 ml 210 ml -45 ml 500 ml Intake Oral 240 ml 360 ml 480 ml IV Total 500 ml Output Urine Total 350 ml 150 ml 525 ml # Bowel Movements 0 1 Result Diagram: 07/31/17 0503 07/28/17 0134 Imaging Last Impressions Aorta w/Runoff CTA 07/27/17 0000 Signed Impressions: Service Date/Time: Thursday, July 27, 2017 01:19 - CONCLUSION: 1. Abrupt occlusion of the proximal right external iliac with collateral reconstitution of the right common femoral. 2. On the right, the profunda, SFA and above-the- knee articular patent with abrupt occlusion of the juxta-articular portion of the popliteal concern for an embolic event. Collateral reconstitution of the trifurcation vessels. All 3 are patent into the ankle and foot. 3. Inflow and outflow is adequate on the left. 4. Mesenteric and renal vessels are patent. Johnathon Luis MD Chest X-Ray 07/25/17 1209 Signed Impressions: Service Date/Time: Tuesday, July 25, 2017 12:13 - CONCLUSION: No acute disease. Cornell Moreland MD Objective Remarks General: No acute distress. Sitting up in a chair. Heart: Regular rate and rhythm. No murmur. Lungs: Scattered wheeze. Breathing is nonlabored. Abdomen: Soft, nontender, nondistended. Right groin wound healing. Extremities: No lower extremity edema. Psych: Alert and oriented. Neuro: Normal speech. No focal deficits noted. Procedures 07/26/17 cardiac catheterization 07/27/17 right iliac embolectomy, right popliteal embolectomy, right common femoral artery patch angioplasty with bovine pericardium Urinary Catheter: No Vascular Central Line Catheter: No A/P Problem List: (1) Acute coronary syndrome ICD Code: I24.9 - Acute ischemic heart disease, unspecified (2) Non-STEMI (non-ST elevated myocardial infarction) ICD Code: I21.4 - Non-ST elevation (NSTEMI) myocardial infarction Status: Acute (3) Hypoxia ICD Code: R09.02 - Hypoxemia (4) Lower limb ischemia ICD Code: I99.8 - Other disorder of circulatory system Assessment and Plan 1. Acute coronary syndrome, non-ST elevation DC: Appreciate cardiology recommendations. Troponin elevated. Status post cardiac catheterization. Continue aspirin, statin, beta-vee. 2. Possible alcohol withdrawal: [facility] protocol. 3. COPD: Continue duo nebs, supplemental oxygen. Continue Tessalon Perles for cough. 4. Right lower extremity ischemia: Status post embolectomy by vascular surgery. Developed hematoma. Aspirin only per vascular surgery. Continue pain control. Wound VAC removed. 5. DVT prophylaxis: Heparin drip discontinued. 6. Nausea/vomiting: Possibly due to pain meds. Continue Zofran as needed. 7. Constipation: Bowel regimen. Seen and discussed with Dr. Armstrong. Discharge Planning Plan is for discharge to SNF soon, possibly tomorrow. Jamir Crespo MD July 31, 2017 10:06
[2017-07-31] MEDS: MORPHINE SULFATE 4 MG/ML INJ IV PUSH PRN ×2 (15:24→18:01)
[2017-07-31] MEDS: ATORVASTATIN 10 MG TAB PO SCH (20:38)
[2017-08-01] VITALS (21 sets, daily range): BP systolic 116–140; BP diastolic 55–74; PULSE 68–104; RESP 16; TEMP 97.5–98.6; O2SAT 92–96
[2017-08-01 04:06] LABS: AUTOMATED NEUTROPHIL # 3.4 TH/MM3 (1.8-7.7); BASOPHIL # 0.1 TH/MM3 (0-0.2); BASOPHIL % 0.8 % (0.0-2.0); EOSINOPHIL # 0.6 TH/MM3 (0-0.4); EOSINOPHIL % 9.1 % (0.0-4.0); HEMATOCRIT 30.1 % (35.0-46.0); HEMOGLOBIN 10.1 GM/DL (11.6-15.3); LYMPH % 26.2 % (9.0-44.0); LYMPHOCYTE # 1.7 TH/MM3 (1.0-4.8); MEAN CELL VOLUME 93.4 FL (80.0-100.0); MEAN CORPUSCULAR HEMOGLOBIN 31.2 PG (27.0-34.0); MEAN CORPUSCULAR HGB CONC 33.4 % (32.0-36.0); MEAN PLATELET VOLUME 8.8 FL (7.0-11.0); MONO % 12.9 % (0.0-8.0); MONOCYTE # 0.9 TH/MM3 (0-0.9); PLATELET COUNT 232 TH/MM3 (150-450); RED BLOOD COUNT 3.23 MIL/MM3 (4.00-5.30); RED CELL DISTRIBUTION WIDTH 13.5 % (11.6-17.2); WHITE BLOOD COUNT 6.6 TH/MM3 (4.0-11.0)
[2017-08-01] MEDS ORDERED: PERC5TAB12 PO (08:06)
[2017-08-01] MEDS ORDERED: LIPI10TA PO (08:06)
[2017-08-01] MEDS ORDERED: Albuterol Neb NEB (08:06)
[2017-08-01] MEDS ORDERED: LISI2.5T3 PO (08:06)
[2017-08-01] MEDS ORDERED: ASA325 PO (08:06)
[2017-08-01] MEDS ORDERED: METO25TA3 PO (08:06)
--- NOTE | 2017-08-01 08:07 | HHI.DCPOC ---
Discharge Care Plan Diagnosis: (1) Non-STEMI (non-ST elevated myocardial infarction) (2) Acute respiratory failure with hypoxia (3) Hypoxia (4) Acute coronary syndrome (5) CAD (coronary artery disease) (6) Elevated troponin (7) COPD (chronic obstructive pulmonary disease) (8) Lower limb ischemia Goals to Promote Your Health * To prevent worsening of your condition and complications * To maintain your health at the optimal level Directions to Meet Your Goals Take your medications as prescribed Follow your dietary instruction Follow activity as directed Keep your appointments as scheduled Take your immunizations and boosters as scheduled If your symptoms worsen call your PCP, if no PCP go to Urgent Care Center or Emergency Room Smoking is Dangerous to Your Health. Avoid second hand smoke Call the 24-hour hour crisis hotline for domestic abuse at Jamir Crespo MD August 01, 2017 08:07
--- NOTE | 2017-08-01 08:14 | HHI.DS ---
Discharge Summary Admission Date Jul 25, 2017 at 15:34 Discharge Date: August 01, 2017 Admitting Diagnosis acute hypoxic resp failure due to COPD,chest pain with trop I eleva (1) Acute coronary syndrome ICD Code: I24.9 - Acute ischemic heart disease, unspecified (2) Non-STEMI (non-ST elevated myocardial infarction) ICD Code: I21.4 - Non-ST elevation (NSTEMI) myocardial infarction Status: Acute (3) Hypoxia ICD Code: R09.02 - Hypoxemia (4) Lower limb ischemia ICD Code: I99.8 - Other disorder of circulatory system Procedures 07/26/17 cardiac catheterization 07/27/17 right iliac embolectomy, right popliteal embolectomy, right common femoral artery patch angioplasty with bovine pericardium Brief History - From Admission 67-year-old female with known history of hypertension, chronic tobacco use who presented to the hospital because of a 3-4 day history of shortness of breath, dry cough, dyspnea on exertion, orthopnea. Patient was in her normal state of health until 4 days ago when she started developing upper respiratory symptoms with cough and shortness of breath. It progressively got worse until 2 days ago when she started developing orthopnea, dyspnea on exertion. Patient states that she could not lay flat. She had to use 2 pillows in order to sit herself up in order for her to breathe. Then yesterday morning she started developing chest discomfort in which she describes it as someone was sitting on her chest, states that the discomfort radiated up to into the left side of her neck and into her left trapezius where she felt as if she had a muscle cramp there all day. She has some nausea and vomited after she had significant coughing. She had worsening dyspnea on exertion, shortness of breath. She denied any lightheadedness or dizziness. She went to her primary medical doctor's office today for evaluation and they sent her directly to the emergency department. In the emergency department the patient presented and was found to have O2 saturation of 89% on presentation. Patient was initially started on oxygen with improvement of her O2 saturations. Patient does smoke at least a half pack of cigarettes a day since she was 10 years old. Patient has significant risk factors for underlying cardiac disease. 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 She does not indicate that she is ever had any stress test in the past. Patient had a workup done with her clinical presentation with the persistent chest tightness, dyspnea on exertion, orthopnea, EKG findings of anterior lateral T-wave abnormalities possible ischemia. Elevated troponin. Patient with acute coronary syndrome and non-ST elevated myocardial infarction. Switch Repairer was contacted who recommended transfer to the main hospital, started on heparin. Patient was started on cardiac protection with aspirin, beta-vee, statin, Nitropaste. CBC/BMP: 08/01/17 0348 07/28/17 0134 Significant Findings Laboratory Tests Test 07/30/17 04:09 07/30/17 04:10 07/30/17 10:41 07/31/17 05:03 Activated Partial Thromboplast Time 54.1 SEC (24.3-30.1) Red Blood Count 3.88 MIL/MM3 (4.00-5.30) 3.78 MIL/MM3 (4.00-5.30) 3.41 MIL/MM3 (4.00-5.30) Hematocrit 34.7 % (35.0-46.0) 31.3 % (35.0-46.0) Hemoglobin 10.6 GM/DL (11.6-15.3) Monocytes (%) (Auto) 10.0 % (0.0-8.0) Eosinophils (%) (Auto) 5.0 % (0.0-4.0) Test 08/01/17 03:48 Red Blood Count 3.23 MIL/MM3 (4.00-5.30) Hemoglobin 10.1 GM/DL (11.6-15.3) Hematocrit 30.1 % (35.0-46.0) Monocytes (%) (Auto) 12.9 % (0.0-8.0) Eosinophils (%) (Auto) 9.1 % (0.0-4.0) Eosinophils # (Auto) 0.6 TH/MM3 (0-0.4) Imaging Last Impressions Aorta w/Runoff CTA 07/27/17 0000 Signed Impressions: Service Date/Time: Thursday, July 27, 2017 01:19 - CONCLUSION: 1. Abrupt occlusion of the proximal right external iliac with collateral reconstitution of the right common femoral. 2. On the right, the profunda, SFA and above-the- knee articular patent with abrupt occlusion of the juxta-articular portion of the popliteal concern for an embolic event. Collateral reconstitution of the trifurcation vessels. All 3 are patent into the ankle and foot. 3. Inflow and outflow is adequate on the left. 4. Mesenteric and renal vessels are patent. Johnathon Luis MD Chest X-Ray 07/25/17 1209 Signed Impressions: Service Date/Time: Tuesday, July 25, 2017 12:13 - CONCLUSION: No acute disease. Cornell Moreland MD PE at Discharge General: No acute distress. Sitting up in a chair. Heart: Regular rate and rhythm. No murmur. Lungs: Scattered wheeze. Breathing is nonlabored. Abdomen: Soft, nontender, nondistended. Right groin wound healing. Hematoma improving. Area around wound is soft, but tender. Extremities: No lower extremity edema. Psych: Alert and oriented. Neuro: Normal speech. No focal deficits noted. Pt update on day of discharge No complaints at this time. Pain is well controlled. She feels ready to go to SNF. Hospital Course The patient was admitted for evaluation of non-ST elevation LA. Cardiology was consulted. Cardiac catheterization was done. The patient developed right limb ischemia following the procedure. Vascular surgery was consulted. Embolectomy was done. Wound VAC was placed. Patient developed increasing pain in the area and was found to have hematoma. Heparin drip was discontinued and decision was made to continue with only aspirin for blood clot prevention. Hematoma improved. Patient was cleared for discharge by vascular surgery. She was felt to be stable for discharge to SNF. Pt Condition on Discharge: Stable Discharge Disposition: Discharge to SNF Discharge Time: > 30 minutes Discharge Instructions DIET: Follow Instructions for: Heart Healthy Diet Activities you can perform: Regular-No Restrictions Follow up Referrals: Cardiology - 1 Week with Clifford Irwin MD PCP Follow-up - 2 Weeks Vascular Surgery - 2 Weeks @ Vascular Surgery with Brenda Veras New Medications: Lisinopril (Lisinopril) 2.5 Mg Tab 2.5 MG PO DAILY, #30 TAB 0 Refills Oxycodone-Acetaminophen (Percocet) 5-325 mg Tab 1 TAB PO Q4H PRN for PAIN for 3 Days, #18 TAB 0 Refills Walker with Front Wheels (Walker with Front Wheels) 1 Mis Mis EA .XX DIRECTED, #1 0 Refills Aspirin (Px Aspirin) 325 Mg Tab 325 MG PO DAILY for Blood Clot Prevention, #30 TAB Atorvastatin (Lipitor) 10 Mg Tab 10 MG PO HS for Cholesterol Management, #30 TAB Metoprolol Tartrate (Metoprolol Tartrate) 25 Mg Tab 12.5 MG PO BID for Blood Pressure Management, #30 TAB [Albuterol Neb] () 2.5 MG/3 ML NEBU 2.5 MG NEB Q2HR NEB PRN for DYSPNEA, #30 NEBULE 0 Refills Jamir Crespo MD August 01, 2017 08:14
[2017-08-01] MEDS: DOCUSATE SODIUM 50 MG/SENNA 8.6 MG TAB PO SCH (09:04)
[2017-08-01] MEDS: SODIUM CHLORIDE 0.9% FLUSH 10 ML FLUSH IV FLUSH SCH (09:04)
[2017-08-01] MEDS: METOPROLOL TARTRATE 25 MG TAB PO SCH (09:04)
[2017-08-01] MEDS: ASPIRIN 325 MG TAB PO SCH (09:04)
--- NOTE | 2017-08-01 09:15 | PD.VS.PN ---
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 Subjective/Hospital Course looks good groin 'sore" but leg ok otherwise doing great Objective Vitals/I&O Date Time Temp Pulse Resp B/P (MAP) Pulse Ox O2 Delivery O2 Flow Rate FiO2 08/01/17 08:23 94 Nasal Cannula 2.00 08/01/17 07:19 97.9 88 16 140/74 (96) 96 08/01/17 07:00 78 08/01/17 06:04 85 08/01/17 05:09 81 08/01/17 04:46 98.6 74 130/60 (83) 92 08/01/17 04:00 82 08/01/17 03:04 76 08/01/17 02:14 73 08/01/17 01:18 73 08/01/17 00:10 76 07/31/17 23:51 98.3 82 117/57 (77) 92 07/31/17 23:00 71 07/31/17 22:00 77 07/31/17 21:00 75 07/31/17 20:00 100 07/31/17 19:00 91 07/31/17 19:00 97.9 85 118/59 (78) 92 07/31/17 18:00 99 07/31/17 17:00 97 07/31/17 16:00 76 07/31/17 15:00 97.9 84 116/57 (76) 92 07/31/17 15:00 81 07/31/17 15:00 92 Room Air 07/31/17 14:00 83 07/31/17 13:00 85 07/31/17 12:00 88 07/31/17 11:00 93 Room Air 07/31/17 11:00 98.5 90 107/60 (76) 93 07/31/17 11:00 78 07/31/17 10:00 73 08/01/17 08/01/17 08/01/17 07:00 15:00 23:00 Intake Total 300 ml Output Total 250 ml Balance 50 ml Exam: R groin slightly full, not tense palpable PT Laboratory Laboratory Tests Test 08/01/17 03:48 White Blood Count 6.6 Red Blood Count 3.23 Hemoglobin 10.1 Hematocrit 30.1 Mean Corpuscular Volume 93.4 Mean Corpuscular Hemoglobin 31.2 Mean Corpuscular Hemoglobin Concent 33.4 Red Cell Distribution Width 13.5 Platelet Count 232 Mean Platelet Volume 8.8 Neutrophils (%) (Auto) 51.0 Lymphocytes (%) (Auto) 26.2 Monocytes (%) (Auto) 12.9 Eosinophils (%) (Auto) 9.1 Basophils (%) (Auto) 0.8 Neutrophils # (Auto) 3.4 Lymphocytes # (Auto) 1.7 Monocytes # (Auto) 0.9 Eosinophils # (Auto) 0.6 Basophils # (Auto) 0.1 CBC Comment DIFF FINAL Differential Comment Date/Time Source Procedure Growth Status 07/25/17 12:40 Nasal Washing Influenza Types A,B Antigen ([place]) - Final NEGATIVE FOR FLU A AND B ANTIGEN.... Complete 07/25/17 17:00 Urine Clean Catch Urine Culture - Final 50-100,000 CFU/ML MIXED HEATHER... Complete Assessment and Plan Assessment: (1) Lower limb ischemia Plan Acute R LE limb ischemia secondary to ELECTROLOG OPERATOR access from [facility] POD#5 s/p R groin reconstruction and embolectomy hematoma stable and soft Palpable PT and foot warm 1. OOB/PT 2. ASA only ok 3. ok with d/c to rehab today 4. Will arrange outpatient f/u Discharge Planning today (Tuesday) to rehab Pedrito Armstrong MD August 01, 2017 09:15
--- NOTE | 2017-08-01 13:26 | PD.CARD.PN ---
Subjective Subjective Remarks No CP, SOB improved, feels better Objective Medications Current Medications Medications (Trade) Dose Ordered Sig/[place]ina Route Start Time Stop Time Status Last Admin (NS Flush) 2 ml BID IV FLUSH 07/25/17 21:00 08/01/17 09:04 (NS Flush) 2 ml UNSCH PRN IV FLUSH 07/25/17 15:45 (Tylenol) 650 mg Q6H PRN PO 07/25/17 15:45 07/27/17 23:29 (Xanax) 0.25 mg Q8H PRN PO 07/25/17 15:45 07/26/17 08:40 (Zofran Inj) 4 mg Q6H PRN IV PUSH 07/25/17 15:45 07/29/17 07:54 (Lopressor) 12.5 mg BID PO 07/25/17 21:00 08/01/17 09:04 (Lipitor) 10 mg HS PO 07/25/17 21:00 07/31/17 20:38 (Romazicon Inj) 0.2 mg Q1M PRN IV PUSH 07/26/17 09:00 (Ativan) 1 mg Q4H PRN PO 07/26/17 09:00 (Ativan Inj) 1 mg Q4H PRN IV PUSH 07/26/17 09:00 (Ativan) 2 mg Q2H PRN PO 07/26/17 09:00 (Ativan Inj) 2 mg Q2H PRN IV PUSH 07/26/17 09:00 (Ativan Inj) 2 mg Q1H PRN IV PUSH 07/26/17 09:00 (Ativan Inj) 2 mg Q15M PRN IV PUSH 07/26/17 09:00 (Tessalon) 100 mg TID PRN PO 07/26/17 09:00 07/26/17 10:50 (Albuterol Neb) 2.5 mg Q2HR NEB PRN NEB 07/26/17 09:00 07/29/17 21:43 (Aspirin) 325 mg DAILY PO 07/27/17 09:00 08/01/17 09:04 (Roxicodone) 5 mg Q4H PRN PO 07/27/17 06:45 08/01/17 12:50 (Dilaudid) 2 mg Q4H PRN PO 07/27/17 06:45 07/31/17 18:01 (Carine-Colace) 1 tab BID PO 07/29/17 09:00 07/31/17 07:54 (Milk Of Magnesia Liq) 30 ml Q12H PRN PO 07/29/17 08:15 07/30/17 11:29 (Senokot) 17.2 mg Q12H PRN PO 07/29/17 08:15 (Dulcolax Supp) 10 mg DAILY PRN RECTAL 07/29/17 08:15 07/30/17 16:40 (Lactulose Liq) 30 ml DAILY PRN PO 07/29/17 08:15 (Morphine Inj) 2 mg Q1HR PRN IV PUSH 07/30/17 08:15 07/31/17 18:01 Vital Signs / I&O Vital Signs Date Time Temp Pulse Resp B/P (MAP) Pulse Ox O2 Delivery O2 Flow Rate FiO2 08/01/17 12:00 68 08/01/17 11:48 98.4 82 16 116/55 (75) 94 08/01/17 11:00 86 08/01/17 10:00 72 08/01/17 09:00 90 08/01/17 08:23 94 Nasal Cannula 2.00 08/01/17 08:00 104 08/01/17 07:19 97.9 88 16 140/74 (96) 96 08/01/17 07:00 78 08/01/17 06:04 85 08/01/17 05:09 81 08/01/17 04:46 98.6 74 130/60 (83) 92 08/01/17 04:00 82 08/01/17 03:04 76 08/01/17 02:14 73 08/01/17 01:18 73 08/01/17 00:10 76 07/31/17 23:51 98.3 82 117/57 (77) 92 07/31/17 23:00 71 07/31/17 22:00 77 07/31/17 21:00 75 07/31/17 20:00 100 07/31/17 19:00 91 07/31/17 19:00 97.9 85 118/59 (78) 92 07/31/17 18:00 99 07/31/17 17:00 97 07/31/17 16:00 76 07/31/17 15:00 97.9 84 116/57 (76) 92 07/31/17 15:00 81 07/31/17 15:00 92 Room Air 07/31/17 14:00 83 I/O 07/31/17 07/31/17 07/31/17 08/01/17 08/01/17 08/01/17 07:00 15:00 23:00 07:00 15:00 23:00 Intake Total 480 ml 500 ml 920 ml 300 ml Output Total 525 ml 250 ml 250 ml Balance -45 ml 500 ml 670 ml 50 ml Intake Oral 480 ml 920 ml 300 ml IV Total 500 ml Output Urine Total 525 ml 250 ml 250 ml # Voids 2 # Bowel Movements 2 Physical Exam GENERAL: In NAD. SKIN: Warm and dry. HEAD: Normocephalic. EYES: No scleral icterus. No injection or drainage. NECK: Supple, trachea midline. No JVD or lymphadenopathy. CARDIOVASCULAR: Regular rate and rhythm without murmurs, gallops, or rubs. RESPIRATORY: Breath sounds equal bilaterally. No accessory muscle use. GASTROINTESTINAL: Abdomen soft, non-tender, nondistended. MUSCULOSKELETAL: No cyanosis, or edema. Laboratory Laboratory Tests Test 08/01/17 03:48 White Blood Count 6.6 TH/MM3 Red Blood Count 3.23 MIL/MM3 Hemoglobin 10.1 GM/DL Hematocrit 30.1 % Mean Corpuscular Volume 93.4 FL Mean Corpuscular Hemoglobin 31.2 PG Mean Corpuscular Hemoglobin Concent 33.4 % Red Cell Distribution Width 13.5 % Platelet Count 232 TH/MM3 Mean Platelet Volume 8.8 FL Neutrophils (%) (Auto) 51.0 % Lymphocytes (%) (Auto) 26.2 % Monocytes (%) (Auto) 12.9 % Eosinophils (%) (Auto) 9.1 % Basophils (%) (Auto) 0.8 % Neutrophils # (Auto) 3.4 TH/MM3 Lymphocytes # (Auto) 1.7 TH/MM3 Monocytes # (Auto) 0.9 TH/MM3 Eosinophils # (Auto) 0.6 TH/MM3 Basophils # (Auto) 0.1 TH/MM3 CBC Comment DIFF FINAL Differential Comment Assessment and Plan Problem List: (1) Elevated troponin ICD Codes: R74.8 - Abnormal levels of other serum enzymes (2) CAD (coronary artery disease) ICD Codes: I25.10 - Atherosclerotic heart disease of [place] coronary artery without angina pectoris (3) Lower limb ischemia ICD Codes: I99.8 - Other disorder of circulatory system (4) Acute respiratory failure with hypoxia ICD Codes: J96.01 - Acute respiratory failure with hypoxia Status: Acute (5) COPD (chronic obstructive pulmonary disease) ICD Codes: J44.9 - Chronic obstructive pulmonary disease, unspecified Assessment and Plan Remains stable from cardiac standpoint. Cath with mild CAD only. She developed cold leg and underwent embolectomy by Dr. Armstrong. Continue tx for COPD exacerbation. Continue risk factor modification. Increase activity, PT. Anticipate discharge soon. Will schedule f/u in our office after discharge. Clifford Irwin MD August 01, 2017 13:26
== END 2017-08-01 15:31 | DRG 270 ==
LOC: PHED 11:41 → PHEDA 15:34 → HCPC 19:10
PROVIDERS: ADMIT Family Medicine; ATTEND Family Medicine
PROC: B2151ZZ Fluoroscopy of Left Heart using Low Osmolar Contrast (ICD-10-PCS; 2017-07-26)
PROC: B2111ZZ Fluoroscopy of Multiple Coronary Arteries using Low Osmolar Contrast (ICD-10-PCS; 2017-07-26)
PROC: 4A023N7 Measurement of Cardiac Sampling and Pressure, Left Heart, Percutaneous Approach (ICD-10-PCS; 2017-07-26)
PROC: 04UK0KZ Supplement Right Femoral Artery with Nonautologous Tissue Substitute, Open Approach (ICD-10-PCS; 2017-07-27)
PROC: 04CH0ZZ Extirpation of Matter from Right External Iliac Artery, Open Approach (ICD-10-PCS; principal; 2017-07-27 05:10)
PROC: 04CM0ZZ Extirpation of Matter from Right Popliteal Artery, Open Approach (ICD-10-PCS; 2017-07-27 05:10)
DX: I21.4 Non-ST elevation (NSTEMI) myocardial infarction (principal); J96.01 Acute respiratory failure with hypoxia; J44.1 Chronic obstructive pulmonary disease with (acute) exacerbation; I74.5 Embolism and thrombosis of iliac artery; I74.3 Embolism and thrombosis of arteries of the lower extremities; I97.610 Postprocedural hemorrhage of a circulatory system organ or structure following a cardiac catheterization; R00.0 Tachycardia, unspecified; I25.10 Atherosclerotic heart disease of native coronary artery without angina pectoris; M79.604 Pain in right leg; K59.00 Constipation, unspecified; I10 Essential (primary) hypertension; F17.210 Nicotine dependence, cigarettes, uncomplicated; I99.8 Other disorder of circulatory system
CPT/HCPCS: 71045; 75635; 80048; 80061; 80076; 81001; 82550; 82552; 83880; 84443; 84484; 85025; 85027; 85610; 85730; 86850; 86900; 86901; 87086; 87804; 93005; 93458; 94150; 94640; 94664; 96374; 99152; 99153; C1757; C1768; C1769; C1893; J0171; J0461; J0690; J1100; J1644; J2250; J2270; J2370; J2405; J2710; J2720; J2930; J3010; J7030; J7040; J7120; J7613; Q9967